=== PATIENT | female | born 1975 | race Caucasian/White ===

== ENCOUNTER → 2016-09-17 | Outpatient (REF) | payer BC ==
[2016-09-17 11:44] LABS: BASO % 0.3 % (0.0-1.0); EOS # 0.2 K/mm3 (0.0-0.50); LARGE UNSTAINED CELL # 0.2 K/mm3 (0.0-0.4); LARGE UNSTAINED CELL % 3.9 % (0.0-4.0); LYMPH # 1.1 K/mm3 (1.5-4.5); LYMPH % 25.4 % (24.0-44.0); MEAN CORPUSCULAR HEMOGLOBIN 29.2 pg (27.0-33.0); MEAN CORPUSCULAR HGB CONC 33.2 g/dl (32.0-36.5); MEAN CORPUSCULAR VOLUME 87.9 fl (80.0-96.0); MONO # 0.3 K/mm3 (0.0-0.8); MONO % 7.5 % (0.0-5.0); NEUTROPHILS # 2.6 K/mm3 (1.8-7.7); NEUTROPHILS % 57.9 % (36.0-66.0); PLATELET COUNT, AUTOMATED 282 k/mm3 (150-450); RED CELL DISTRIBUTION WIDTH 12.9 % (11.5-14.5); WHITE BLOOD COUNT 4.4 K/mm3 (4.0-10.0)
[2016-09-17 12:03] LABS: ALBUMIN 4.1 GM/DL (3.2-5.2); ALBUMIN/GLOBULIN RATIO 1.24 (1.00-1.93); BILIRUBIN,TOTAL 0.5 MG/DL (0.2-1.0); CALCIUM LEVEL 8.7 MG/DL (8.5-10.1); CREATININE FOR GFR 1.1 MG/DL (0.55-1.02); GLOMERULAR FILTRATION RATE 59.2 (>60); POTASSIUM SERUM 4.1 MEQ/L (3.5-5.1); TOTAL PROTEIN 7.4 GM/DL (6.4-8.2)
== END ==
LOC: M SFHCPLAZ 08:59
PROVIDERS: ATTEND Nurse Practitioner Family
DX: Z00.00 Encounter for general adult medical examination without abnormal findings (principal); E55.9 Vitamin D deficiency, unspecified

== ENCOUNTER → 2016-12-05 | Outpatient (REF) | payer BC ==
[2016-12-05 17:10] LABS: ANION GAP 4 MEQ/L (8-16); BLOOD UREA NITROGEN 10 MG/DL (7-18); CALCIUM LEVEL 9.3 MG/DL (8.5-10.1); CARBON DIOXIDE LEVEL 31 MEQ/L (21-32); CHLORIDE LEVEL 104 MEQ/L (98-107); CREATININE FOR GFR 1.02 MG/DL (0.55-1.02); FREE T4 1.29 NG/DL (0.76-1.46); GLOMERULAR FILTRATION RATE > 60.0 (>60); GLUCOSE, FASTING 99 MG/DL (70-105); POTASSIUM SERUM 4.2 MEQ/L (3.5-5.1); SODIUM LEVEL 139 MEQ/L (136-145)
[2016-12-05 18:24] LABS: BASO % 0.2 % (0.0-1.0); EOS # 0.2 K/mm3 (0.0-0.50); EOS % 2.3 % (0.0-3.0); LARGE UNSTAINED CELL # 0.1 K/mm3 (0.0-0.4); LYMPH # 1.8 K/mm3 (1.5-4.5); LYMPH % 25.2 % (24.0-44.0); MEAN CORPUSCULAR HEMOGLOBIN 29.1 pg (27.0-33.0); MEAN CORPUSCULAR HGB CONC 32.4 g/dl (32.0-36.5); MEAN CORPUSCULAR VOLUME 89.6 fl (80.0-96.0); MONO # 0.5 K/mm3 (0.0-0.8); MONO % 6.5 % (0.0-5.0); NEUTROPHILS # 4.4 K/mm3 (1.8-7.7); NEUTROPHILS % 63.7 % (36.0-66.0); PLATELET COUNT, AUTOMATED 293 k/mm3 (150-450); RED CELL DISTRIBUTION WIDTH 12.5 % (11.5-14.5); WHITE BLOOD COUNT 6.9 K/mm3 (4.0-10.0)
== END ==
LOC: M SFHCPLAZ 12:24
PROVIDERS: ATTEND Nurse Practitioner Family
DX: R53.83 Other fatigue (principal); E89.0 Postprocedural hypothyroidism; E55.9 Vitamin D deficiency, unspecified

== ENCOUNTER → 2016-12-11 | Outpatient (REF) | payer BC | LOC: M SFHCWAGY 11:29 | PROVIDERS: ATTEND Nurse Practitioner Women's Health | DX: Z12.4 Encounter for screening for malignant neoplasm of cervix (principal) ==

== ENCOUNTER → 2017-03-29 | Outpatient (REF) | payer BC ==
[2017-04-02 00:10] LABS: Lyme Disease IgG/IgM Antibodie <0.91 ISR (0.00-0.90); Lyme Disease IgM Ab Quantitati <0.80 index (0.00-0.79)
== END ==
LOC: M SFHCPLAZ 13:36
PROVIDERS: ATTEND Nurse Practitioner Family
DX: M25.50 Pain in unspecified joint (principal)

== ENCOUNTER → 2017-07-25 | Outpatient (CLI) | payer BC ==
[~2017-07-25] MED LIST: GASTROGRAFIN SOLUTION 30ML (Q9963) As Ordered ONE
--- NOTE | 2017-07-25 16:02 | REP ---
Clinical: Colonic stricture. Comparison: None. Findings: Lung bases are clear. Visualized heart and pericardium normal. Liver, spleen, pancreas, gallbladder, bilateral adrenal glands and kidneys are normal for noncontrast evaluation. The enteric system is without obstruction or acute inflammatory process although evaluation is somewhat limited by the lack of both the intraluminal and intravenous contrast enhancement. A normal terminal ileum and appendix are identified in the right lower quadrant. Scattered sigmoid diverticula are noted without acute diverticulitis. Pelvis demonstrates normal bladder and age appropriate uterus / adnexa with possible underlying myomatous changes. No ascites. No adenopathy. No obvious mass lesion. Abdominal aorta without aneurysm. Musculoskeletal structures are intact. Impression: 1. Scattered sigmoid diverticula without acute diverticulitis. 2. Cannot exclude myomatous changes to the uterus. 3. No ascites, obvious adenopathy or mass lesion. No further abdominopelvic pathology appreciated by noncontrast evaluation. Signed by Ezequiel Lantigua MD 07/25/2017 03:53 P
== END ==
LOC: M RAD 12:52
PROVIDERS: ATTEND Internal Medicine Gastroenterology
DX: K56.699 Other intestinal obstruction unspecified as to partial versus complete obstruction (principal); K57.30 Diverticulosis of large intestine without perforation or abscess without bleeding; R10.9 Unspecified abdominal pain; K62.5 Hemorrhage of anus and rectum; K59.00 Constipation, unspecified
CPT/HCPCS: 74176; Q9963

== ENCOUNTER → 2017-09-25 | Outpatient (CLI) | payer BC | LOC: M WHC 08:06 | DX: N85.8 Other specified noninflammatory disorders of uterus (principal); N94.6 Dysmenorrhea, unspecified | CPT/HCPCS: 76830 ==

== ENCOUNTER → 2018-08-07 | Outpatient (CLI) | payer MEDICARE, BC ==
--- NOTE | 2018-08-07 09:04 | REP ---
LEFT HAND, FOUR VIEWS: HISTORY: Ganglion cyst. There is no acute fracture or dislocation. The joint spaces are normal in appearance. IMPRESSION: There is no acute fracture or dislocation. Electronically Signed by Delfino Pichardo MD 08/07/2018 09:13 A
--- NOTE | 2018-08-07 09:05 | REP ---
LEFT WRIST, FOUR VIEWS: HISTORY: Ganglion cyst. There is no acute fracture or dislocation. The joint spaces are normal in appearance. IMPRESSION: There is no acute fracture or dislocation. Electronically Signed by Delfino Pichardo MD 08/07/2018 09:13 A
== END ==
LOC: M RAD 07:48
PROVIDERS: ATTEND Nurse Practitioner Family
DX: M67.449 Ganglion, unspecified hand (principal); M79.643 Pain in unspecified hand; M65.4 Radial styloid tenosynovitis [de Quervain]; M25.532 Pain in left wrist

== ENCOUNTER → 2019-06-05 | Outpatient (CLI) | payer MEDICARE, BC ==
[2019-06-05 11:29] LABS: BASO % 0.4 % (0.0-1.0); EOS # 0.3 10^3/uL (0.0-0.5); EOS % 5.4 % (0.0-3.0); HEMATOCRIT 41.1 % (36.0-47.0); HEMOGLOBIN 13.6 g/dl (12.0-15.5); LYMPH # 1.7 10^3/uL (1.5-5.0); LYMPH % 37.7 % (24.0-44.0); MEAN CORPUSCULAR HEMOGLOBIN 29.8 pg (27.0-33.0); MEAN CORPUSCULAR HGB CONC 33.1 g/dl (32.0-36.5); MEAN CORPUSCULAR VOLUME 89.9 fl (80.0-96.0); MONO # 0.4 10^3/uL (0.0-0.8); MONO % 9.5 % (0.0-5.0); NEUTROPHILS # 2.2 10^3/uL (1.5-8.5); NEUTROPHILS % 46.8 % (36.0-66.0); PLATELET COUNT, AUTOMATED 220 10^3/uL (150-450); RED BLOOD COUNT 4.57 10^6/uL (4.00-5.40); WHITE BLOOD COUNT 4.6 10^3/uL (4.0-10.0)
[2019-06-05 12:16] LABS: ALBUMIN 4.2 GM/DL (3.2-5.2); ALT/SGPT 16 U/L (12-78); BILIRUBIN,TOTAL 0.4 MG/DL (0.2-1.0); BLOOD UREA NITROGEN 16 MG/DL (7-18); CALCIUM LEVEL 9.3 MG/DL (8.5-10.1); CARBON DIOXIDE LEVEL 27 MEQ/L (21-32); CHLORIDE LEVEL 103 MEQ/L (98-107); CREATININE FOR GFR 0.97 MG/DL (0.55-1.30); FOLATE 18.7 NG/ML; GLOMERULAR FILTRATION RATE > 60.0 (>58); GLUCOSE, FASTING 84 MG/DL (70-100); SODIUM LEVEL 140 MEQ/L (136-145); VITAMIN B12 LEVEL 313 PG/ML
[2019-06-10 08:12] LABS: CERULOPLASMIN 24.6 mg/dL (19.0-39.0); VITAMIN B6,PYRIDOXAL PHOSPHATE 22.2 ug/L (2.0-32.8); VITAMIN E(GAMMA TOCOPHEROL) 0.5 mg/L (0.5-5.5)
== END ==
LOC: M LAB 09:06
PROVIDERS: ATTEND Psychiatry & Neurology Neurology
DX: R51 Headache (principal)

== ENCOUNTER → 2020-07-11 | Outpatient (CLI) | payer MEDICARE, BC ==
[2020-07-11 11:03] LABS: BLOOD UREA NITROGEN 13 MG/DL (7-18); CARBON DIOXIDE LEVEL 25 MEQ/L (21-32); CHLORIDE LEVEL 109 MEQ/L (98-107); CHOLESTEROL LEVEL 261 MG/DL (<200); CHOLESTEROL RISK RATIO 4.078 (<5); CREATININE FOR GFR 0.97 MG/DL (0.55-1.30); FREE T4 1.12 NG/DL (0.76-1.46); GLOMERULAR FILTRATION RATE > 60.0 (>58); GLUCOSE, FASTING 86 MG/DL (70-100); HDL CHOLESTEROL 64 MG/DL (>40); LDL CHOLESTEROL 160 MG/DL (<100); NON-HDL-C 197 MG/DL; POTASSIUM SERUM 4.2 MEQ/L (3.5-5.1); SODIUM LEVEL 140 MEQ/L (136-145); THYROID STIMULATING HORMONE 0.241 uIU/ML (0.358-3.740); TRIGLYCERIDES LEVEL 185 MG/DL (<150)
[2020-07-11 11:21] LABS: THYROGLOBULIN ANTIBODY < 15.0 U/ML (<60.0)
== END ==
LOC: M LAB 08:25
PROVIDERS: ATTEND Internal Medicine Endocrinology, Diabetes & Metabolism
DX: C73 Malignant neoplasm of thyroid gland (principal); E89.0 Postprocedural hypothyroidism

== ENCOUNTER → 2020-08-19 | Outpatient (CLI) | payer MEDICARE, BC ==
--- NOTE | 2020-08-19 14:40 | REP ---
INDICATION: HYPOTHYROID, HX THYROID CA. COMPARISON: Patient has a history of thyroid cancer with thyroidectomy in 2015 in. There is a pre surgical thyroid ultrasound study dated 08/27/2014 that demonstrated an enlarging left thyroid nodule. TECHNIQUE: Multiple real-time and color doppler ultrasound images of the thyroid bed. FINDINGS: There is no residual thyroid tissue . There are multiple nodular densities in the thyroid bed on the right and left . All of these nodular densities have hypoechoic rims and hyperechoic centers compatible with lymph nodes. The largest 4 on the left measure 9 x 4 x 7 mm, 13 x 7 x 10 mm, 13 x 5 x 12 mm and 12 x 7 mm. These are upper normal size to borderline enlarged. The largest 4 on the right measure 17 x 5 x 12 mm, 10 x 6 x 12 mm, 12 x 6 x 9 mm and 11 x 6 x 11 mm. These are of upper normal size to borderline enlarged. IMPRESSION: No residual thyroid tissue is identified. Multiple lymph nodes are identified in the thyroid bed as described. These lymph nodes are upper normal size to borderline enlarged. <Electronically signed by Cong Walker > 08/19/20 [id number]
== END ==
LOC: M RAD 10:47
PROVIDERS: ATTEND Internal Medicine Endocrinology, Diabetes & Metabolism
DX: C73 Malignant neoplasm of thyroid gland (principal); E89.0 Postprocedural hypothyroidism

== ENCOUNTER → 2020-08-31 | Outpatient (CLI) | payer MEDICARE, BC ==
[2020-09-02 10:06] LABS: THRYOGLOBULIN ANTIBODIES (ATA) < 1.0 IU/mL (0.0-0.9); THYROGLOBULIN QUANTITATIVE < 0.1 ng/mL (1.5-38.5)
== END ==
LOC: M LAB 08:42
PROVIDERS: ATTEND Internal Medicine Endocrinology, Diabetes & Metabolism
DX: C73 Malignant neoplasm of thyroid gland (principal)

== ENCOUNTER → 2021-02-11 | Outpatient (CLI) | payer MEDICARE, BC ==
--- NOTE | 2021-02-11 12:29 | REP ---
INDICATION: CONTUSION OF LEFT FOOT, INITIAL ENCOUNTER COMPARISON: None. TECHNIQUE: AP, lateral, bilateral oblique views left foot. FINDINGS: The osseous structures and joint spaces are intact and normal. There is no evidence for acute fracture or dislocation. Surrounding soft tissues are unremarkable. No subcutaneous emphysema or radiodense foreign body. IMPRESSION: . No acute fracture or dislocation. <Electronically signed by Ezequiel Lantigua > 02/11/21 [id number]
== END ==
LOC: M RAD 11:53
PROVIDERS: ATTEND Physician Assistant
DX: S90.32XA Contusion of left foot, initial encounter (principal); X58.XXXA Exposure to other specified factors, initial encounter; Y92.9 Unspecified place or not applicable; Y99.9 Unspecified external cause status

== ENCOUNTER → 2021-03-06 | Outpatient (CLI) | payer MEDICARE, BC ==
--- NOTE | 2021-03-10 01:11 | ECWPNPC ---
PATIENT NAME: WILIAM MEADE : 1975 GENDER: FEMALE VISIT DATE: 03/06/2021 DISCHARGE DATE: 03/06/21905 VISIT LOCKED DATE TIME: PHYSICIAN: DWAYNE CURTIS PHYSICIAN PAGER NO: INACTIVE RESOURCE: DWAYNE CURTIS REASON FOR APPOINTMENT 1. BOTOX FOR MIGRAINES HISTORY OF PRESENT ILLNESS DEPRESSION SCREENING: PHQ-2 (2015 EDITION) LITTLE INTEREST OR PLEASURE IN DOING THINGS?NOT AT ALL FEELING DOWN, DEPRESSED, OR HOPELESS?NOT AT ALL TOTAL SCORE0 GENERAL: HPI 45-YEAR-OLD FEMALE IN FOR INITIAL CONSULT REGARDING BOTOX FOR HER MIGRAINES. PATIENT HAS A HISTORY OF CHRONIC MIGRAINES AND HAS RECEIVED BOTOX INJECTIONS FOR HER MIGRAINES IN THE PAST WITH GOOD RELIEF.. - -. FALL RISK SCREENING: SCREENING MULTIPLE FALLS REPORTED IN THE LAST YEAR WITHOUT INJURY. PATIENT STATES SHE HAS A "BALANCE PROBLEM.". PAIN SCREENING: PATIENT HAS A COMPLAINT OF ACUTE OR CHRONIC PAIN :YES LOCATION OF PAIN:HEAD INTENSITY OF PAIN (SCALE OF 1 TO 10):7 7 ON THE PAIN SCALE WHEN THE PATIENT HAS A MIGRAINE. WHAT DOES YOUR PAIN FEEL LIKE:ACHING, BURNING, INTERMITTENT, SHARP, STABBING, TENDER, THROBBING, SORE, SHOOTING DURATION:INTERMITTENT, AWAKENS FROM SLEEP PAIN IS INCREASED BY:OTHERS HEAT, SOUND, LIGHT, NOISE, MOVEMENT PAIN IS DECREASED BY:USE OF PAIN MEDICATIONS, OTHERS ICE, DARKNESS, QUIET NURSING NOTE: - -. PAIN CENTER INTAKE QUESTIONS: DO YOU HAVE A HISTORY OF MRSA? :NO DO YOU TAKE A BLOOD THINNERS? :NO DO YOU HAVE ANY BLEEDING DISORDERS? :NO ANY NEW NUMBNESS OR WEAKNESS IN YOUR LEGS OR ARMS? :NO ANY PACEMAKER,DEFIBRILLATOR, OR DORSAL COLUMN STIMULATOR? :NO DO YOU HAVE ANY RASHES OR OPEN SORES? :NO ARE YOU ALLERGIC TO IV DYE? :NO ARE YOU DIABETIC? :NO ANY NEW PROBLEMS WITH YOUR MEDICATIONS? :NO HAVE YOU RECEIVED A VACCINE IN THE PAST 30 DAYS? :NO DO YOU PLAN TO RECEIVE A VACCINE IN THE NEXT 21 DAYS? :NO DO YOU NEED ANY PRESCRIPTION? :NO DO YOU TAKE ANY IMMUNOSUPPRESSIVE MEDICATIONS? :NO IS THERE A CHANCE YOU COULD BE ? :NO ARE YOU BREAST FEEDING? :NO CURRENT MEDICATIONS TAKING TOPAMAX 25 MG TABLET 1 TABLET ORALLY ONCE A DAY TAKING VITAMIN D 50 MCG (1999 UT) TABLET 1 TABLET ORALLY ONCE A DAY TAKING SPACER/AERO CHAMBER MOUTHPIECE 1 1 1 ORALLY TWICE A DAY NEEDED TAKING BACLOFEN 10 MG TABLET 1 TABLET ORALLY THREE TIMES A DAY NEEDED DR MURILLO) TAKING BOTOX 200 UNIT SOLUTION RECONSTITUTED 1 UNIT DOSE INJECTION EVERY THREE MONTHS TAKING KLONOPIN 0.5 MG TABLET 1 TABLET ORALLY BID TAKING CLARITIN 10 MG TABLET 1 TABLET ORALLY DAILY NEEDED TAKING ZOLOFT 100 MG TABLET 1 TABLET ORALLY ONCE A DAY TAKING WELLBUTRIN XL 300 MG TABLET EXTENDED RELEASE 24 HOUR 1 TABLET IN THE MORNING ORALLY ONCE A DAY TAKING LEVOTHYROXINE SODIUM 175 MCG TABLET 1 TABLET ORALLY ONCE A DAY TAKING FLONASE 50 MCG/ACT SUSPENSION 1 SPRAY IN EACH NOSTRIL NASALLY ONCE A DAY NEEDED TAKING MELOXICAM 7.5 MG TABLET DISINTEGRATING (PRIOR AUTH: RX REF#:[id number]) ORALLY DAILY TAKING HYDROXYZINE HCL 10 MG TABLET (PRIOR AUTH: RX REF#:[id number]) ORAL TAKING ALEVE 220 MG TABLET 2 TABS NEEDED ORALLY EVERY 12 HRS TAKING CPAP MACHINE DIRECTED NOT-TAKING FOLATE 400 MCG TABLET 1 TABLET ORALLY ONCE A DAY NOT-TAKING VITAMIN B-12 100 MCG TABLET DIRECTED ORALLY NOT-TAKING OMEPRAZOLE 20 MG CAPSULE DELAYED RELEASE 1 CAPSULE ORALLY ONCE A DAY NOT-TAKING WRIST SPLINT - MISCELLANEOUS DIRECTED SPICA SPLINT DX: M65.4 NOT-TAKING VENTOLIN HFA 108 (90 BASE) MCG/ACT AEROSOL SOLUTION 2 PUFFS INHALATION EVERY 4-6 HOURS NEEDED NOT-TAKING FRANCESCO-BE 0.35 MG TABLET 1 TABLET ORALLY ONCE A DAY NOT-TAKING ORTHO MICRONOR 0.35 MG TABLET 1 TABLET ORALLY ONCE A DAY NOT-TAKING SYMBICORT 160-4.5 MCG/ACT AEROSOL 2 PUFFS INHALATION TWICE A DAY NOT-TAKING DRISDOL 50,000 UNITS TABLET 1 TABLET ORAL EVERY WEEK MEDICATION LIST REVIEWED AND RECONCILED WITH THE PATIENT PAST MEDICAL HISTORY ASTHMA ALLERGIC RHINITIS DEPRESSION/ANXIETY BILATERAL HEMIPLEGIC FACIAL SPASM, BLEPHAROSPASMS, BUCCAL SPASM BOTOX EVERY 3 MONTHS - FOLLOWING WITH NEUROLOGIST DR MURILLO, AND IN [place] MORBID OBESITY PAPILLARY CARCINOMA OF THE THYROID DX 09/23 [facility]/ENDO MIGRAINES ALLERGIES SWEET POTATOES: NAUSEA/VOMITING - SIDE EFFECTS SEASONAL: CONGESTION - ALLERGY SURGICAL HISTORY TOTAL THYROIDECTOMY @ [facility] 12/16/14 FAMILY HISTORY FATHER: ALIVE 68 YRS, PROSTATE CANCER MOTHER: ALIVE 69 YRS, FIBROCYSTIC BREASTS SIBLINGS: ALIVE 50 YRS, NO KNOWN MEDICAL PROBLEMS PATERNAL GRAND FATHER: DM PATERNAL GRAND MOTHER: BREAST CANCER MATERNAL GRAND MOTHER: 42 YRS, UNKNOWN CAUSES MATERNAL AUNT: ALIVE, KIDNEY PROBLEMS 1 BROTHER(S) . NO KNOWN FH COLORECTAL, BREAST CA IN FIRST DEGREE RELATIVE.MOTHER HAS MIGRAINES. SOCIAL HISTORY GENERAL: TOBACCO USE ARE YOU A:NONSMOKER LATEX QUESTIONNAIRE LATEX ALLERGY : HAVE YOU EVER DEVELOPED ANY TYPE OF REACTION AFTER HANDLING LATEX PRODUCTS SUCH RUBBER GLOVES, CONDOMS, DIAPHRAGMS, BALLOONS, SOCKS, OR UNDERWEAR?NO LATEX ALLERGY : HAVE YOU EVER DEVELOPED ANY TYPE OF REACTION DURING OR AFTER DENTAL APPOINTMENT, VAGINAL/RECTAL EXAMINATION, SURGICAL PROCEDURE, OR ANY OTHER EXPOSURE?NO LATEX RISK : HAVE YOU EVER HAD ANY DIFFICULTY BREATHING OR HIVES AFTER EATING OR HANDLING ANY FRUITS, OR VEGETABLES; SUCH KIWI, BANANAS, STONE FRUITS, OR CHESTNUTSNO LATEX RISK : DO YOU HAVE A PREVIOUS PERSONAL HISTORY OF MORE THAN NINE SURGERIES, SPINA BIFIDA, OR REPEATED CATHERIZATIONS? NO LATEX RISK : ARE YOU FREQUENTLY EXPOSED TO LATEX PRODUCTS IN YOUR OCCUPATION?NO DATE ASKED : 03/06/2021 ALCOHOL USE: OCCASIONAL. BMI CARE GOAL FOLLOW-UP ABOVE NORMAL BMI FOLLOW-UPDIETARY MANAGEMENT EDUCATION, GUIDANCE, AND COUNSELING, GIVING ENCOURAGEMENT TO EXERCISE, WEIGHT MONITORING RECREATIONAL DRUG USE DENIES. CAFFEINE CAFFEINE USE?YES HOW OFTEN AND HOW MUCH? 2 CUPS OF COFFEE DAILY SEXUAL HX HAD SEX IN THE LAST 12 MONTHS (VAGINAL, ORAL, OR ANAL)?YES WITHMEN ONLY USE PROTECTION?NO LMP:11/25/16 HAVE YOU EVER HAD AN STD?NO HIV / HEP-C SCREENING HIV TEST OFFERED TO PATIENT:YES DATE OFFERED:12/11/2016 TEST ACCEPTED:NO REASON:PATIENT DECLINED [facility] WITNESS.. LANGUAGE LANGUAGES SPOKEN:SETSWANA EDUCATION LEVEL OF EDUCATION:COLLEGE LEARNING BARRIERS / SPECIAL NEEDS CHANGE FROM LAST VISIT?NO BARRIERS TO LEARNING?NO HEARING IMPAIRED?NO VISION IMPAIRED?YES :CORRECTIVE LENSES COGNITIVELY IMPAIRED?NO READINESS TO LEARN?YES LEARNING PREFERENCES?NO LEARNING CAPABILITIES PRESENT?YES EMOTIONAL BARRIERS?NO SPECIAL DEVICES?NO FUR DRESSER NEEDED?NO DOMESTIC VIOLENCE NONE. OCCUPATION: UNEMPLOYED. DIET: REGULAR. EXERCISE: NO REGULAR EXERCISE. MARITAL STATUS: SINCE 1998. OTHERS AT HOME: SPOUSE, MOM - LIVES IN AN APT ATTACHED TO HER HOUSE. HOUSING: OWNS HOME. HOSPITALIZATION/MAJOR DIAGNOSTIC PROCEDURE SURGERY RELATED 12/26/2014 REVIEW OF SYSTEMS CONSTITUTIONAL: ANY RECENT FEVER NO . CHILLS NO . WEIGHT CHANGE OF UNKNOWN REASONS NO . GASTROENTEROLOGY: NEW UNEXPLAINABLE CHANGES IN BOWEL CONTROL NO . CONSTIPATION NO . GENITOURINARY: ANY NEW CHANGE IN BLADDER CONTROL? NO . NEUROLOGY: NEW ONSET DIZZINESS OR NEUROLOGICAL CHANGES NOT MENTIONED NO . NEW NUMBNESS OR PAIN PATTERNS NOT MENTIONED AND PERTINENT TO TODAY'S VISIT NO . CARDIOLOGY: NEW CHEST PRESSURE NO . PATIENT DENIES NO . RESPIRATORY: UNEXPLAINABLE COUGH NO . NEW SHORTNESS OF BREATH NO . VITAL SIGNS WT 203.4 LBS, HT 67 IN, BMI 31.85 INDEX, BP 141/78 MM HG, HR 89 /MIN, RR 20 /MIN, TEMP 98.8 F, OXYGEN SAT % 98%, SAFE IN ENV? (Y/N) YES, NA INITIALS MN 08:31, REVIEWED BY: MAXWELL RYAN MA. EXAMINATION GENERAL EXAMINATION: GENERALNO ACUTE DISTRESS, WELL NOURISHED AND HYDRATED. PSYCHAPPROPRIATE MOOD AND AFFECT . LUNGS:CLEAR TO AUSCULTATION BILATERALLY, NO WHEEZES, RHONCHI, RALES. HEART:NO MURMURS, REGULAR RATE AND RHYTHM. ASSESSMENTS MIGRAINE WITHOUT AURA AND WITHOUT STATUS MIGRAINOSUS, NOT INTRACTABLE - G43.009 (PRIMARY) TREATMENT MIGRAINE WITHOUT AURA AND WITHOUT STATUS MIGRAINOSUS, NOT INTRACTABLE MEDICATION: NORCO TABLET 5MG/325MG ORALLY (HYDROCODONE/ACETAMINOPHEN) (ORDERED FOR 03/16/2021) MEDICATION: VALIUM TAB 5MG ORALLY (DIAZEPAM) (ORDERED FOR 03/16/2021) NOTES: 45-YEAR-OLD FEMALE IN FOR INITIAL PAIN CONSULT REGARDING BOTOX INJECTIONS FOR HER MIGRAINES. GIVEN PRESENTING SYMPTOMS AND RESULTS OF PHYSICAL EXAMINATION RECOMMEND BOTOX INJECTIONS TO THE HEAD NECK AND SHOULDERS WITH POSTPROCEDURAL FOLLOW-UP. PATIENT HAS EXPRESSED UNDERSTANDING OF AND WAS IN AGREEMENT WITH TREATMENT PLAN. GIVEN TIME TO ASK QUESTIONS AND EXPRESS CONCERNS. OTHERS CLINICAL NOTES: PREPROCEDURE AND PROCEDURE INFORMATION PRINTED AND PROVIDED TO PATIENT. PATIENT VERBALIZED AN UNDERSTANDING. TYRA RYAN MA. PROCEDURE CODES FA211 ESTABILISHED PATIENT [facility] CHARGE DISPOSITION & COMMUNICATION FOLLOW UP POST PROCEDURE (REASON: BOTOX INJECTIONS OF 155 UNITS INTO BILATERAL SUPERVISOR ROLLING ROOM, PROCERUS, FRONTALIS, TEMPORALIS, OCCIPITALIS, PARASPINAL AND TRAPEZIUS MUSCLES EVERY 3 MONTHS) ELECTRONICALLY SIGNED BY DAVI SALEH ON 03/09/2021 AT 07:45 AM EDT DISCLAIMER : THIS IS A VISIT SUMMARY EXTRACTED FROM THE [employer] CHART. IT IS NOT A COPY OF THE [employer] PROGRESS NOTE. DAMON
== END ==
LOC: M PAIN 08:30
PROVIDERS: ATTEND Family Medicine
DX: G43.009 Migraine without aura, not intractable, without status migrainosus (principal); J45.909 Unspecified asthma, uncomplicated; F32.9 Major depressive disorder, single episode, unspecified; F41.9 Anxiety disorder, unspecified; G51.33 Clonic hemifacial spasm, bilateral; Z85.238 Personal history of other malignant neoplasm of thymus; E89.0 Postprocedural hypothyroidism; Z79.899 Other long term (current) drug therapy; Z91.018 Allergy to other foods

== ENCOUNTER → 2021-03-22 | Outpatient (CLI) | payer MEDICARE, BC ==
[2021-03-22 12:23] LABS: BASO % 0.5 % (0.0-1.0); EOS # 0.3 10^3/uL (0.0-0.5); EOS % 4.4 % (0.0-3.0); HEMATOCRIT 40.7 % (36.0-47.0); HEMOGLOBIN 13.6 g/dl (12.0-15.5); LYMPH # 2.2 10^3/uL (1.5-5.0); LYMPH % 30.2 % (24.0-44.0); MEAN CORPUSCULAR HEMOGLOBIN 31.3 pg (27.0-33.0); MEAN CORPUSCULAR HGB CONC 33.4 g/dl (32.0-36.5); MEAN CORPUSCULAR VOLUME 93.6 fl (80.0-96.0); MONO # 0.5 10^3/uL (0.0-0.8); MONO % 7.1 % (2.0-8.0); NEUTROPHILS # 4.2 10^3/uL (1.5-8.5); NEUTROPHILS % 57.4 % (36.0-66.0); PLATELET COUNT, AUTOMATED 265 10^3/uL (150-450); RED BLOOD COUNT 4.35 10^6/uL (4.00-5.40); WHITE BLOOD COUNT 7.3 10^3/uL (4.0-10.0)
[2021-03-22 13:04] LABS: ALBUMIN 3.9 GM/DL (3.2-5.2); ALT/SGPT 28 U/L (12-78); BILIRUBIN,TOTAL 0.3 MG/DL (0.2-1.0); BLOOD UREA NITROGEN 13 MG/DL (7-18); CALCIUM LEVEL 9.3 MG/DL (8.5-10.1); CARBON DIOXIDE LEVEL 25 MEQ/L (21-32); CHLORIDE LEVEL 109 MEQ/L (98-107); CREATININE FOR GFR 0.92 MG/DL (0.55-1.30); FREE T4 1.18 NG/DL (0.76-1.46); GLOMERULAR FILTRATION RATE > 60.0 (>58); GLUCOSE, FASTING 82 MG/DL (70-100); POTASSIUM SERUM 4.3 MEQ/L (3.5-5.1); PTH INTACT 28.7 PG/ML (18.5-88.0); SODIUM LEVEL 140 MEQ/L (136-145); THYROID STIMULATING HORMONE 0.544 uIU/ML (0.358-3.740); TOTAL 25(OH) VITAMIN D 20.2 NG/ML (30.0-100.0)
[2021-03-23 19:02] LABS: CHOLESTEROL LEVEL 232 MG/DL (<200); CHOLESTEROL RISK RATIO 4.142 (<5); HDL CHOLESTEROL 56 MG/DL (>40); LDL CHOLESTEROL 126 MG/DL (<100); NON-HDL-C 176 MG/DL; TRIGLYCERIDES LEVEL 251 MG/DL (<150)
== END ==
LOC: M LAB 11:00
PROVIDERS: ATTEND Physician Assistant Medical
DX: E55.9 Vitamin D deficiency, unspecified (principal); E03.9 Hypothyroidism, unspecified; K21.9 Gastro-esophageal reflux disease without esophagitis; Z13.1 Encounter for screening for diabetes mellitus; Z79.899 Other long term (current) drug therapy
CPT/HCPCS: 36415; 80053; 80061; 82306; 83036; 83970; 84439; 84443; 85025; G0463

== ENCOUNTER → 2021-04-08 | Outpatient (CLI) | payer MEDICARE, BC | LOC: M LABSMTC 10:08 | PROVIDERS: ATTEND Anesthesiology | DX: Z01.812 Encounter for preprocedural laboratory examination (principal); Z20.822 Contact with and (suspected) exposure to COVID-19 ==

== ENCOUNTER → 2021-04-13 | Outpatient (CLI) | payer MEDICARE, BC ==
[~2021-04-13] MED LIST changes: +BOTOX THERAPEUTIC 100 UNIT VIAL (J0585 PER 1 UNIT) IM ONE; -GASTROGRAFIN SOLUTION 30ML (Q9963) As Ordered ONE; +NORCO, ANEXSIA 5/325MG TABLET (HYDROcodone/ACETAMINOPHEN) As Ordered ONE; +diazePAM 5MG TABLET As Ordered ONE
--- NOTE | 2021-04-19 02:17 | ECWPNPC ---
PATIENT NAME: WILIAM MEADE : 1975 GENDER: FEMALE VISIT DATE: 04/13/2021 DISCHARGE DATE: 04/13/21 1211 VISIT LOCKED DATE TIME: PHYSICIAN: JENNY HURTADO MD PHYSICIAN PAGER NO: ACTIVE RESOURCE: JENNY HURTADO MD REASON FOR APPOINTMENT 1. BOTOX INJECTIONS TO THE HEAD, NECK AND SHOULDER AREAS HISTORY OF PRESENT ILLNESS GENERAL: -. FALL RISK SCREENING: SCREENING : ONE FALL REPORTED IN THE LAST YEAR WITHOUT INJURY. PAIN SCREENING: PATIENT HAS A COMPLAINT OF ACUTE OR CHRONIC PAIN :YES LOCATION OF PAIN:HEAD, NECK, BOTH SHOULDERS INTENSITY OF PAIN (SCALE OF 1 TO 10):4 WHAT DOES YOUR PAIN FEEL LIKE:ACHING DURATION:CONTINOUS, CONSTANT PAIN IS INCREASED BY:ACTIVITIES PAIN IS DECREASED BY: ICE/HEAT NURSING NOTE: -. PAIN CENTER INTAKE QUESTIONS: DO YOU HAVE A HISTORY OF MRSA? :NO DO YOU TAKE A BLOOD THINNERS? :NO DO YOU HAVE ANY BLEEDING DISORDERS? :NO ANY NEW NUMBNESS OR WEAKNESS IN YOUR LEGS OR ARMS? :NO ANY PACEMAKER,DEFIBRILLATOR, OR DORSAL COLUMN STIMULATOR? :NO DO YOU HAVE ANY RASHES OR OPEN SORES? :NO ARE YOU ALLERGIC TO IV DYE? :NO ARE YOU DIABETIC? :NO ANY NEW PROBLEMS WITH YOUR MEDICATIONS? :NO HAVE YOU RECEIVED A VACCINE IN THE PAST 30 DAYS? :NO DO YOU PLAN TO RECEIVE A VACCINE IN THE NEXT 21 DAYS? :NO DO YOU TAKE ANY IMMUNOSUPPRESSIVE MEDICATIONS? :NO ANY HISTORY OF SEIZURES? :NO ANY HISTORY OF CARDIAC ISSUES OR EVENTS? :NO DO YOU HAVE ANY KIDNEY OR LIVER DISEASE? :NO DO YOU HAVE SLEEP APNEA? :YES DO YOU WEAR A CPAP?YES ANY RECENT HEAD INJURY? :NO DO YOU HAVE ANY NEW INFECTIONS? :NO IS THERE A CHANCE YOU COULD BE ? :NO ARE YOU BREAST FEEDING? :NO WHEN DID YOU LAST EAT? : 04/12/21 WHEN DID YOU LAST DRINK? : 04/13/21 0430 WHAT DID YOU LAST DRINK? : COFFEE WITH CREAM NAME OF PERSON DRIVING YOU HOME? : MOM DO YOU HAVE ANY OTHER QUESTIONS OR CONCERNS? : - CURRENT MEDICATIONS TAKING TOPAMAX 25 MG TABLET 1 TABLET ORALLY ONCE A DAY TAKING BACLOFEN 10 MG TABLET 1 TABLET ORALLY THREE TIMES A DAY NEEDED DR MURILLO) TAKING KLONOPIN 0.5 MG TABLET 1 TABLET ORALLY BID TAKING CLARITIN 10 MG TABLET 1 TABLET ORALLY DAILY NEEDED TAKING ZOLOFT 100 MG TABLET 1 TABLET ORALLY ONCE A DAY TAKING WELLBUTRIN XL 300 MG TABLET EXTENDED RELEASE 24 HOUR 1 TABLET IN THE MORNING ORALLY ONCE A DAY TAKING LEVOTHYROXINE SODIUM 175 MCG TABLET 1 TABLET ORALLY ONCE A DAY TAKING FLONASE 50 MCG/ACT SUSPENSION 1 SPRAY IN EACH NOSTRIL NASALLY ONCE A DAY NEEDED TAKING MELOXICAM 7.5 MG TABLET DISINTEGRATING (PRIOR AUTH: RX REF#:[id number]) ORALLY DAILY TAKING HYDROXYZINE HCL 10 MG TABLET (PRIOR AUTH: RX REF#:[id number]) ORAL TAKING ALEVE 220 MG TABLET 2 TABS NEEDED ORALLY EVERY 12 HRS TAKING TIZANIDINE HCL 4 MG TABLET 1 TABLET NEEDED ORALLY THREE TIMES A DAY TAKING SPACER/AERO CHAMBER MOUTHPIECE 1 1 1 ORALLY TWICE A DAY NEEDED TAKING VENTOLIN HFA 108 (90 BASE) MCG/ACT AEROSOL SOLUTION 2 PUFFS INHALATION EVERY 4-6 HOURS NEEDED TAKING BOTOX 100 UNIT SOLUTION RECONSTITUTED FOR IM INJECTION AT THE HEAD, NECK AND SHOULDER MUSCLES ICD G43.709 OTOX ON 04/13/21 AT 10:40 MEDICATION LIST REVIEWED AND RECONCILED WITH THE PATIENT PAST MEDICAL HISTORY ASTHMA ALLERGIC RHINITIS DEPRESSION/ANXIETY BILATERAL HEMIPLEGIC FACIAL SPASM, BLEPHAROSPASMS, BUCCAL SPASM BOTOX EVERY 3 MONTHS - FOLLOWING WITH NEUROLOGIST DR MURILLO, AND IN [place] MORBID OBESITY PAPILLARY CARCINOMA OF THE THYROID DX 09/23 [facility] MIGRAINES POTS ALLERGIES SWEET POTATOES: NAUSEA/VOMITING - SIDE EFFECTS SEASONAL: CONGESTION - ALLERGY SOCIAL HISTORY GENERAL: TOBACCO USE ARE YOU A:NONSMOKER LATEX QUESTIONNAIRE LATEX ALLERGY : HAVE YOU EVER DEVELOPED ANY TYPE OF REACTION AFTER HANDLING LATEX PRODUCTS SUCH RUBBER GLOVES, CONDOMS, DIAPHRAGMS, BALLOONS, SOCKS, OR UNDERWEAR?NO LATEX ALLERGY : HAVE YOU EVER DEVELOPED ANY TYPE OF REACTION DURING OR AFTER DENTAL APPOINTMENT, VAGINAL/RECTAL EXAMINATION, SURGICAL PROCEDURE, OR ANY OTHER EXPOSURE?NO LATEX RISK : HAVE YOU EVER HAD ANY DIFFICULTY BREATHING OR HIVES AFTER EATING OR HANDLING ANY FRUITS, OR VEGETABLES; SUCH KIWI, BANANAS, STONE FRUITS, OR CHESTNUTSNO LATEX RISK : DO YOU HAVE A PREVIOUS PERSONAL HISTORY OF MORE THAN NINE SURGERIES, SPINA BIFIDA, OR REPEATED CATHERIZATIONS? NO LATEX RISK : ARE YOU FREQUENTLY EXPOSED TO LATEX PRODUCTS IN YOUR OCCUPATION?NO DATE ASKED : 03/06/2021 ALCOHOL USE: OCCASIONAL. BMI CARE GOAL FOLLOW-UP ABOVE NORMAL BMI FOLLOW-UPDIETARY MANAGEMENT EDUCATION, GUIDANCE, AND COUNSELING, GIVING ENCOURAGEMENT TO EXERCISE, WEIGHT MONITORING RECREATIONAL DRUG USE DENIES. CAFFEINE CAFFEINE USE?YES HOW OFTEN AND HOW MUCH? 2 CUPS OF COFFEE DAILY SEXUAL HX HAD SEX IN THE LAST 12 MONTHS (VAGINAL, ORAL, OR ANAL)?YES WITHMEN ONLY USE PROTECTION?NO HAVE YOU EVER HAD AN STD?NO LMP:11/25/16 HIV / HEP-C SCREENING HIV TEST OFFERED TO PATIENT:YES DATE OFFERED:12/11/2016 TEST ACCEPTED:NO REASON:PATIENT DECLINED TENRIISM JEHOVIAH WITNESS.. LANGUAGE LANGUAGES SPOKEN:DANISH EDUCATION LEVEL OF EDUCATION:COLLEGE LEARNING BARRIERS / SPECIAL NEEDS CHANGE FROM LAST VISIT?NO BARRIERS TO LEARNING?NO HEARING IMPAIRED?NO VISION IMPAIRED?YES :CORRECTIVE LENSES COGNITIVELY IMPAIRED?NO READINESS TO LEARN?YES LEARNING PREFERENCES?NO LEARNING CAPABILITIES PRESENT?YES EMOTIONAL BARRIERS?NO SPECIAL DEVICES?NO SOCIAL WORK NURSE NEEDED?NO DOMESTIC VIOLENCE NONE. OCCUPATION: UNEMPLOYED. DIET: REGULAR. EXERCISE: NO REGULAR EXERCISE. MARITAL STATUS: SINCE 1998. OTHERS AT HOME: SPOUSE, MOM - LIVES IN AN APT ATTACHED TO HER HOUSE. HOUSING: OWNS HOME. VITAL SIGNS WT 205 LBS, WT-KG 92.99 KG, HT 67 IN, BMI 32.10 INDEX, BP 125/80 MM HG, HR 77 /MIN, RR 18 /MIN, TEMP 98.5 F, OXYGEN SAT % 98%, SAFE IN ENV? (Y/N) Y, NA INITIALS SC 10:59, REVIEWED BY: HAYLEE. EXAMINATION GENERAL: THE PATIENT IS ALERT, ORIENTED TIMES THREE AND COOPERATIVE. LUNGS ARE CLEAR TO AUSCULTATION. HEART SHOWS REGULAR RHYTHM, NO MURMURS AND NO GALLOPS. ASSESSMENTS MIGRAINE WITHOUT AURA AND WITHOUT STATUS MIGRAINOSUS, NOT INTRACTABLE - G43.009 (PRIMARY) TREATMENT MIGRAINE WITHOUT AURA AND WITHOUT STATUS MIGRAINOSUS, NOT INTRACTABLE COMPLETION OF PROCEDURAL VISIT WHEN MEETS [id number],ELIZABETH 04/13/2021 12:11:10 PM > CRITERIA MET MEDICATION: NORCO TABLET 5MG/325MG ORALLY (HYDROCODONE/ACETAMINOPHEN)[id number] CARLSON 04/13/2021 11:03:59 AM > VERIFIED. ROSI GRADY 04/13/2021 11:06:29 AM > ADMINISTERED MEDICATION: PAIN VALIUM TAB 5MG ORALLY (DIAZEPAM)[id number],JAMIE L 04/13/2021 11:04:13 AM > VERIFIED. ROSI GRADY 04/13/2021 11:06:46 AM > ADMINISTERED PROCEDURES PAIN NURSING RECORD PROCEDURE IN ROOM 1045, PHYSICIAN IN ROOM 1135, START 1140, FINISH 1150, PHYSICIAN OUT OF ROOM 1151, OUT OF ROOM 1205, ECG N/A, PATIENT SHIELDED N/A, SAFETY STRAP N/A, PREP ALCOHOL DR. HURTADO, DRESSING N/A LOC: 1. ALERT, ORIENTED, ROSI GRADY 04/13/2021 11:58:10 AM > RESP: 1. REGULAR, NO DYSPNEA, ROSI GRADY 04/13/2021 11:58:14 AM > COLOR: 1. PINK, ROSI GRADY 04/13/2021 11:58:17 AM > SKIN: 1. WARM, DRY, ROSI GRADY 04/13/2021 11:58:20 AM > POSITION: 2. SUPINE, ROSI GRADY 04/13/2021 11:36:10 AM > VITALS: 140/71, 78, 16, 98%, ROSI GRADY 04/13/2021 12:00:31 PM > NOTES Keegan GRADY RN, ROSI GRADY 04/13/2021 11:36:16 AM > COMPLETION OF PROCEDURE APPOINTMENT: POST PAIN 0, DRESSING SITE NO DRESSING, IV N/A, GAIT STEADY, TEACHING COMPLETED, PATIENT ACKNOWLEDGES UNDERSTANDING YES, PROCEDURE APPOINTMENT COMPLETED AT 1210 PN BOTOX INJECTIONS FIRST INJECTION PRE PROCEDURE DIAGNOSIS CHRONIC MIGRAINE HEADACHES POST PROCEDURE DIAGNOSIS CHRONIC MIGRAINE HEADACHES PROCEDURE BOTOX INJECTION AT THE HEAD, NECK AND SHOULDERS SURGEON DR. JENNY HURTADO YEAST PUSHER NONE ANESTHESIA NONE PRE PROCEDURE NOTE THE PATIENT HAS HISTORY OF CHRONIC MIGRAINE HEADACHES. I EVALUATED THE PATIENT AND REVIEWED THE CHART. I WENT OVER THE RISKS, ALTERNATIVES, AND BENEFITS ASSOCIATED WITH THIS PROCEDURE. THE PATIENT WOULD LIKE TO PROCEED AND GAVE CONSENT TO PERFORM THE PROCEDURE. THE PATIENT DENIES UNEXPLAINABLE WEIGHT LOSS, FEVER, CHILLS, OR NEW CHANGES IN URINARY OR BOWEL CONTROL. THE PATIENT HAS BEEN DOING BOTOX INJECTIONS FOR MANY YEARS. THE LAST TIME WAS 3-4 MONTHS AGO. BEFORE DOING BOTOX INJECTIONS, THE PATIENT WAS HAVING HEADACHES EVERY DAY. SINCE DOING BOTOX INJECTIONS, SHE HAS 8 HEADACHES PER MONTH. THE PATIENT HAS USED THE MEDICATIONS LISTED IN THE CHART TO TREAT THE HEADACHES FOR MANY MONTHS BUT THE HEADACHES PERSIST DESCRIBED ABOVE DESCRIPTION OF PROCEDURE THE PATIENT WAS BROUGHT TO THE PROCEDURE ROOM AND PLACED IN THE SUPINE POSITION. A TIMEOUT WAS PERFORMED WHERE THE CONSENTED SITE WAS VERIFIED WITH EVERYONE IN THE ROOM FOR THE PROCEDURE I USED A SOLUTION OF 5 UNITS OF BOTOX PER EACH 0.1 ML OF THE SOLUTION. I USED A 30-GAUGE NEEDLE TO INJECT THE SOLUTION AT THE SELECTED LOCATIONS. I INJECTED FIRST THE RIGHT AND LEFT RESOURCE TECHNICIAN MUSCLES. THE LANDMARK FOR BOTH INJECTIONS WAS APPROXIMATELY 1 CM ABOVE THE SUPERIOR MEDIAL EDGE OF THE EYEBROW. AFTER THESE TWO INJECTIONS, I INJECTED THE PROCERUS MUSCLE AT THE MIDLINE POINT BETWEEN THESE FIRST TWO INJECTIONS. THEN I PROCEEDED TO INJECT THE RIGHT AND LEFT FRONTALIS MUSCLE. TWO INJECTIONS WERE DONE IN EACH SIDE. THE FIRST INJECTION WAS DONE APPROXIMATELY 2 CM ABOVE THE FIRST INJECTION OF THE RESOURCE TECHNICIAN. THE SECOND INJECTION WAS DONE APPROXIMATELY 1.5 CM LATERAL TO THIS FIST INJECTION OF THE FRONTALIS OF EACH SIDE. AFTER THE INJECTIONS OVER THE FOREHEAD WERE DONE, THE PATIENT'S HEAD WAS TURNED TO THE LEFT SIDE AND WE STARTED TO WORK WITH THE RIGHT TEMPORALIS MUSCLE. FIRST INJECTION WAS DONE IN A VERTICAL LINE OF THE TRAGUS APPROXIMATELY 3 CM ABOVE THE TRAGUS. THE SECOND INJECTION WAS DONE APPROXIMATELY 2 CM ABOVE THE FIRST INJECTION. THE THIRD INJECTION WAS DONE APPROXIMATELY 1 CM FORWARD FROM THIS VERTICAL LINE CREATED AT THE LEVEL OF THE TRAGUS, PRISON BETWEEN THESE TWO INJECTIONS. THE FOURTH INJECTION WAS DONE APPROXIMATELY 1.5 CM BACK FROM THE SECOND INJECTION TO THE TEMPORALIS IN LINE TO THE MIDPORTION OF THE EAR. THEN, WE PROCEEDED TO INJECT THE LEFT TEMPORALIS MUSCLE. WE CLEANED THE AREA WITH ALCOHOL AND PROCEEDED TO PERFORM THE SAME FOR INJECTIONS DESCRIBED ABOVE BUT IN THE LEFT TEMPORALIS MUSCLE USING THE SAME LANDMARKS. AFTER THESE INJECTIONS WERE DONE, THE PATIENT WAS SEATED. FIRST, WE STARTED TO INJECT THE LEFT AND RIGHT OCCIPITALIS MUSCLE. I INJECTED AT THE FOLLOWING PLACES IN THE RIGHT AND LEFT MUSCLE. THE FIRST INJECTION WAS DONE AT THE MIDPOINT POSITION BETWEEN THE MASTOID PROCESS AND THE INION OF THE OCCIPITAL PROTUBERANCE. THE SECOND INJECTION WAS DONE APPROXIMATELY 1.5 CM SUPERIOR AND LATERAL OF THIS POINT. THE THIRD INJECTION WAS DONE APPROXIMATELY 1.5 CM SUPERIOR AND MEDIAL TO THIS FIRST INJECTION. NEXT, I PROCEEDED TO INJECT THE RIGHT AND LEFT PARASPINAL MUSCLES. LANDMARK OF THE INJECTION WERE APPROXIMATELY: FIRST INJECTION 3 CM BELOW THE INION AND 1 CM LATERAL TO THE MIDLINE AND SECOND INJECTION AT EACH SIDE WAS DONE APPROXIMATELY 1.5 CM SUPERIOR AND LATERAL OF THE FIRST INJECTION. THE LAST GROUP OF INJECTIONS WAS DONE OVER THE RIGHT AND LEFT TRAPEZIUS MUSCLE OVER THE SHOULDERS AREA. THE FIRST INJECTION WAS DONE AT THE MIDPOINT BETWEEN THE INFLECTION POINT BETWEEN THE NECK AND SHOULDER AND THE ACROMION. THE SECOND AND THIRD INJECTIONS WERE DONE APPROXIMATELY 2.5 CM LATERAL AND MEDIAL FROM THIS FIRST INJECTION. SAME TARGETS WERE USED IN THE RIGHT AND LEFT SIDE. IN TOTAL, I INJECTED 155 UNITS OF BOTOX. THE MEDICATIONS WERE VERIFIED WITH THE NURSE. PROCEDURE WAS DONE WITHOUT EVIDENCE OF PARESTHESIA OR ANY COMPLICATIONS. THE PATIENT TOLERATED THE PROCEDURE VERY WELL. ESTIMATED BLOOD LOSS WAS LESS THAN 5 ML. THE PATIENT WAS SENT TO THE RECOVERY ROOM FOR OBSERVATIONS. INJECTIONS WERE DONE AFTER CLEANING WITH ALCOHOL, USING ASEPTIC TECHNIQUES POST PROCEDURE NOTE THE PROCEDURE DONE WAS DISCUSSED WITH THE PATIENT. THE PATIENT WILL BE SEEN IN A FOLLOW UP IN THE NEXT FEW WEEKS. I AM LOOKING FOR LONG LASTING PAIN RELIEF FOR THE PATIENT WITH THIS INTERVENTION. INSTRUCTIONS WERE GIVEN, QUESTIONS WERE ANSWERED, AND THE PATIENT EXPRESSED UNDERSTANDING AND AGREES WITH THE PLAN. I, MILA GUIDRY, DOCUMENTED THE ABOVE INFORMATION ACTING A SCRIBE FOR DR. HURTADO. I HAVE REVIEWED THE ABOVE DOCUMENT, WRITTEN BY MILA GUIDRY, FISCAL SERVICES DIRECTOR, AND I VERIFY THAT IT IS ACCURATE VISIT CODES PROCEDURE CODES 12419 CHEMODENERV MUSC MIGRAINE DISPOSITION & COMMUNICATION FOLLOW UP FOLLOW UP WITH STEEPING PRESS TENDER (REASON: PSOT BOTOX INJECTIONS TO HEAD, NECK AND SHOULDERS) ELECTRONICALLY SIGNED BY JENNY HURTADO MD, MD ON 04/18/2021 AT 01:33 PM EDT DISCLAIMER : THIS IS A VISIT SUMMARY EXTRACTED FROM THE [facility] CHART. IT IS NOT A COPY OF THE [facility] PROGRESS NOTE. DAMON
== END ==
LOC: M PAIN 10:40
PROVIDERS: ATTEND Anesthesiology
DX: G43.709 Chronic migraine without aura, not intractable, without status migrainosus (principal); G47.30 Sleep apnea, unspecified; J45.909 Unspecified asthma, uncomplicated; Z86.59 Personal history of other mental and behavioral disorders; Z79.899 Other long term (current) drug therapy
CPT/HCPCS: 64615; J0585

== ENCOUNTER → 2021-04-26 | Outpatient (REF) | payer MEDICARE, BC | LOC: M SFHCPLAZ 16:56 | PROVIDERS: ATTEND Physician Assistant | DX: R35.0 Frequency of micturition (principal) ==

== ENCOUNTER → 2021-05-17 | Outpatient (REF) | payer MEDICARE, BC ==
[2021-05-17 13:06] LABS: APPEARANCE, URINE HAZY (CLEAR); BACTERIA, URINE AUTO NEGATIVE (NEGATIVE); BILIRUBIN, URINE AUTO NEGATIVE (NEGATIVE); BLOOD, URINE BLOOD NEGATIVE (NEGATIVE); COLOR, URINE YELLOW (YELLOW); GLUCOSE, URINE (UA) AUTO NEGATIVE (NEGATIVE); KETONE, URINE AUTO NEGATIVE (NEGATIVE); LEUKOCYTE ESTERASE, URINE AUTO NEGATIVE (NEGATIVE); MUCUS, URINE SMALL (NEGATIVE); NITRITE, URINE AUTO NEGATIVE (NEGATIVE); PROTEIN, URINE AUTO NEGATIVE (NEGATIVE); RBC, URINE AUTO 0 /HPF (0-3); SPECIFIC GRAVITY URINE AUTO 1.014 (1.002-1.035); SQUAMOUS EPITHELIAL CELL UR AU 0 /HPF (0-6); WBC, URINE AUTO 0 /HPF (0-3)
== END ==
LOC: M SFHCPLAZ 12:28
PROVIDERS: ATTEND Physician Assistant Medical
DX: R35.0 Frequency of micturition (principal)
CPT/HCPCS: 81001; 87086; G0463

== ENCOUNTER → 2021-06-15 | Outpatient (CLI) | payer MEDICARE, BC | LOC: M PAIN 14:45 | PROVIDERS: ATTEND Nurse Practitioner Family | DX: G89.29 Other chronic pain (principal); G43.009 Migraine without aura, not intractable, without status migrainosus; J45.909 Unspecified asthma, uncomplicated; F32.9 Major depressive disorder, single episode, unspecified; F41.9 Anxiety disorder, unspecified; G43.909 Migraine, unspecified, not intractable, without status migrainosus; Z79.899 Other long term (current) drug therapy; Z91.018 Allergy to other foods ==

== ENCOUNTER → 2021-06-28 | Outpatient (REF) | payer MEDICARE, BC ==
[2021-06-28 13:43] LABS: APPEARANCE, URINE CLEAR (CLEAR); BACTERIA, URINE AUTO NEGATIVE (NEGATIVE); BILIRUBIN, URINE AUTO NEGATIVE (NEGATIVE); BLOOD, URINE BLOOD NEGATIVE (NEGATIVE); COLOR, URINE YELLOW (YELLOW); GLUCOSE, URINE (UA) AUTO NEGATIVE (NEGATIVE); KETONE, URINE AUTO NEGATIVE (NEGATIVE); LEUKOCYTE ESTERASE, URINE AUTO NEGATIVE (NEGATIVE); NITRITE, URINE AUTO NEGATIVE (NEGATIVE); PROTEIN, URINE AUTO NEGATIVE (NEGATIVE); RBC, URINE AUTO 0 /HPF (0-3); SPECIFIC GRAVITY URINE AUTO 1.005 (1.002-1.035); SQUAMOUS EPITHELIAL CELL UR AU 0 /HPF (0-6); UROBILINOGEN, URINE AUTO 0.2 mg/dL (0.0-2.0); WBC, URINE AUTO 0 /HPF (0-3)
== END ==
LOC: M SFHCPLAZ 12:47
PROVIDERS: ATTEND Physician Assistant Medical
DX: N30.90 Cystitis, unspecified without hematuria (principal)
CPT/HCPCS: 81001; 81002; 87086; G0463

== ENCOUNTER → 2021-07-11 | Outpatient (CLI) | payer MEDICARE, BC ==
[2021-07-11 10:38] LABS: APPEARANCE, URINE HAZY (CLEAR); BACTERIA, URINE AUTO 1+ (NEGATIVE); BILIRUBIN, URINE AUTO NEGATIVE (NEGATIVE); BLOOD, URINE BLOOD 3+ (NEGATIVE); COLOR, URINE YELLOW (YELLOW); GLUCOSE, URINE (UA) AUTO NEGATIVE (NEGATIVE); KETONE, URINE AUTO NEGATIVE (NEGATIVE); LEUKOCYTE ESTERASE, URINE AUTO NEGATIVE (NEGATIVE); MUCUS, URINE SMALL (NEGATIVE); NITRITE, URINE AUTO NEGATIVE (NEGATIVE); PROTEIN, URINE AUTO NEGATIVE (NEGATIVE); RBC, URINE AUTO 28 /HPF (0-3); SQUAMOUS EPITHELIAL CELL UR AU 2 /HPF (0-6); UROBILINOGEN, URINE AUTO 0.2 mg/dL (0.0-2.0); WBC, URINE AUTO 2 /HPF (0-3)
== END ==
LOC: M LAB 09:28
PROVIDERS: ATTEND Physician Assistant Medical
DX: N30.90 Cystitis, unspecified without hematuria (principal)

== ENCOUNTER → 2021-08-23 | Outpatient (CLI) | payer MEDICARE, BC | LOC: M LABSMTC 09:21 | PROVIDERS: ATTEND Anesthesiology | DX: Z01.812 Encounter for preprocedural laboratory examination (principal); Z11.52 Encounter for screening for COVID-19 ==

== ENCOUNTER → 2021-08-28 | Outpatient (CLI) | payer MEDICARE, BC | LOC: M PAIN 10:40 | PROVIDERS: ATTEND Anesthesiology | DX: G43.009 Migraine without aura, not intractable, without status migrainosus (principal); J45.909 Unspecified asthma, uncomplicated; F32.A Depression, unspecified; F41.9 Anxiety disorder, unspecified; E66.01 Morbid (severe) obesity due to excess calories; E89.0 Postprocedural hypothyroidism; Z79.1 Long term (current) use of non-steroidal anti-inflammatories (NSAID); Z79.899 Other long term (current) drug therapy; Z91.018 Allergy to other foods | CPT/HCPCS: 64615; J0585 ==

== ENCOUNTER → 2021-09-28 | Outpatient (CLI) | payer MEDICARE, BC | LOC: M PAIN 11:00 | PROVIDERS: ATTEND Nurse Practitioner Family | DX: G43.009 Migraine without aura, not intractable, without status migrainosus (principal); G89.29 Other chronic pain; G47.30 Sleep apnea, unspecified; J45.909 Unspecified asthma, uncomplicated; Z86.59 Personal history of other mental and behavioral disorders; Z91.018 Allergy to other foods; Z79.899 Other long term (current) drug therapy ==

== ENCOUNTER → 2021-11-28 | Outpatient (CLI) | payer MEDICARE, BC ==
[2021-11-28 10:04] LABS: BASO % 0.5 % (0.0-1.0); EOS # 0.2 10^3/uL (0.0-0.5); EOS % 3.3 % (0.0-3.0); HEMATOCRIT 39.5 % (36.0-47.0); HEMOGLOBIN 13.5 g/dl (12.0-15.5); LYMPH # 2.2 10^3/uL (1.5-5.0); LYMPH % 37.9 % (24.0-44.0); MEAN CORPUSCULAR HEMOGLOBIN 31.3 pg (27.0-33.0); MEAN CORPUSCULAR HGB CONC 34.2 g/dl (32.0-36.5); MEAN CORPUSCULAR VOLUME 91.4 fl (80.0-96.0); MONO # 0.5 10^3/uL (0.0-0.8); MONO % 8.8 % (2.0-8.0); NEUTROPHILS # 2.9 10^3/uL (1.5-8.5); NEUTROPHILS % 49.2 % (36.0-66.0); PLATELET COUNT, AUTOMATED 254 10^3/uL (150-450); RED BLOOD COUNT 4.32 10^6/uL (4.00-5.40); WHITE BLOOD COUNT 5.8 10^3/uL (4.0-10.0)
[2021-11-28 10:40] LABS: CHOLESTEROL RISK RATIO 4.018 (<5); FREE T4 1.16 NG/DL (0.76-1.46); PTH INTACT 42.9 PG/ML (18.5-88.0); THYROID STIMULATING HORMONE 0.355 uIU/ML (0.358-3.740); TOTAL 25(OH) VITAMIN D 55.9 NG/ML (30.0-100.0)
== END ==
LOC: M LAB 09:06
PROVIDERS: ATTEND Physician Assistant Medical
DX: E55.9 Vitamin D deficiency, unspecified (principal); Z13.1 Encounter for screening for diabetes mellitus; K21.9 Gastro-esophageal reflux disease without esophagitis; E03.9 Hypothyroidism, unspecified; Z13.220 Encounter for screening for lipoid disorders

== ENCOUNTER → 2021-12-06 | Outpatient (CLI) | payer MEDICARE, BC | LOC: M LABSMTC 10:17 | PROVIDERS: ATTEND Anesthesiology | DX: Z11.52 Encounter for screening for COVID-19 (principal); Z20.822 Contact with and (suspected) exposure to COVID-19 ==

== ENCOUNTER → 2021-12-11 | Outpatient (CLI) | payer MEDICARE, BC | LOC: M PAIN 08:30 | PROVIDERS: ATTEND Anesthesiology | DX: G43.709 Chronic migraine without aura, not intractable, without status migrainosus (principal); J45.909 Unspecified asthma, uncomplicated; F32.A Depression, unspecified; F41.9 Anxiety disorder, unspecified; I49.9 Cardiac arrhythmia, unspecified; E89.0 Postprocedural hypothyroidism; G51.33 Clonic hemifacial spasm, bilateral; Z91.018 Allergy to other foods; Z79.1 Long term (current) use of non-steroidal anti-inflammatories (NSAID); Z79.899 Other long term (current) drug therapy | CPT/HCPCS: 64615; J0585 ==

== ENCOUNTER → 2022-01-30 | Outpatient (CLI) | payer MEDICARE, BC ==
[2022-01-30 09:58] LABS: FREE T4 1.14 NG/DL (0.76-1.46); THYROID STIMULATING HORMONE 0.419 uIU/ML (0.358-3.740)
[2022-01-30 09:59] LABS: THYROGLOBULIN ANTIBODY < 15.0 U/ML (<60.0)
== END ==
LOC: M LAB 08:55
PROVIDERS: ATTEND Student in an Organized Health Care Education/Training Program
DX: C73 Malignant neoplasm of thyroid gland (principal); E89.0 Postprocedural hypothyroidism

== ENCOUNTER → 2022-02-28 | Outpatient (CLI) | payer MEDICARE, BC | LOC: M PAIN 10:15 | PROVIDERS: ATTEND Nurse Practitioner Family | DX: G43.009 Migraine without aura, not intractable, without status migrainosus (principal); G89.29 Other chronic pain; J45.909 Unspecified asthma, uncomplicated; F41.9 Anxiety disorder, unspecified; F32.A Depression, unspecified; Z91.018 Allergy to other foods; Z79.899 Other long term (current) drug therapy ==

== ENCOUNTER → 2022-03-06 | Outpatient (CLI) | payer MEDICARE, BC | LOC: M PAIN 13:30 | PROVIDERS: ATTEND Anesthesiology | DX: G43.709 Chronic migraine without aura, not intractable, without status migrainosus (principal); M26.609 Unspecified temporomandibular joint disorder, unspecified side; G24.9 Dystonia, unspecified; J45.909 Unspecified asthma, uncomplicated; F32.A Depression, unspecified; F41.9 Anxiety disorder, unspecified; Z85.850 Personal history of malignant neoplasm of thyroid; G51.8 Other disorders of facial nerve; Z79.1 Long term (current) use of non-steroidal anti-inflammatories (NSAID); Z79.899 Other long term (current) drug therapy; Z91.018 Allergy to other foods ==

== ENCOUNTER → 2022-03-27 | Outpatient (CLI) | payer MEDICARE, BC | LOC: M PAIN 11:00 | PROVIDERS: ATTEND Anesthesiology | DX: G43.709 Chronic migraine without aura, not intractable, without status migrainosus (principal); G47.30 Sleep apnea, unspecified; J45.909 Unspecified asthma, uncomplicated; Z86.59 Personal history of other mental and behavioral disorders; Z91.018 Allergy to other foods; Z79.899 Other long term (current) drug therapy | CPT/HCPCS: 64615; J0585 ==

== ENCOUNTER → 2022-05-29 | Outpatient (CLI) | payer MEDICARE, BC | LOC: M PAIN 14:45 | PROVIDERS: ATTEND Anesthesiology | DX: G43.909 Migraine, unspecified, not intractable, without status migrainosus (principal); J45.909 Unspecified asthma, uncomplicated; F32.A Depression, unspecified; F41.9 Anxiety disorder, unspecified; E66.01 Morbid (severe) obesity due to excess calories; Z85.850 Personal history of malignant neoplasm of thyroid; Z91.018 Allergy to other foods ==

== ENCOUNTER → 2022-07-12 | Outpatient (CLI) | payer MEDICARE, BC | LOC: M LABSMTC 11:16 | PROVIDERS: ATTEND Anesthesiology | DX: Z01.812 Encounter for preprocedural laboratory examination (principal); Z20.822 Contact with and (suspected) exposure to COVID-19 ==

== ENCOUNTER → 2022-07-16 | Outpatient (CLI) | payer MEDICARE, BC | LOC: M PAIN 13:30 | PROVIDERS: ATTEND Anesthesiology | DX: G43.009 Migraine without aura, not intractable, without status migrainosus (principal); J45.909 Unspecified asthma, uncomplicated; F32.A Depression, unspecified; F41.9 Anxiety disorder, unspecified; G51.33 Clonic hemifacial spasm, bilateral; E66.01 Morbid (severe) obesity due to excess calories; G90.A Postural orthostatic tachycardia syndrome [POTS]; Z68.33 Body mass index [BMI] 33.0-33.9, adult; Z79.1 Long term (current) use of non-steroidal anti-inflammatories (NSAID); Z79.890 Hormone replacement therapy; Z79.899 Other long term (current) drug therapy; E89.0 Postprocedural hypothyroidism; Z85.850 Personal history of malignant neoplasm of thyroid; Z91.018 Allergy to other foods | CPT/HCPCS: 64615; J0585 ==

== ENCOUNTER → 2022-07-31 | Outpatient (REF) | payer MEDICARE, BC ==
[~2022-07-31] MED LIST changes: +BACL1TAB8 PO; -BOTOX THERAPEUTIC 100 UNIT VIAL (J0585 PER 1 UNIT) IM ONE; +CLON0.5T17 PO; +HYDR-643 PO; -NORCO, ANEXSIA 5/325MG TABLET (HYDROcodone/ACETAMINOPHEN) As Ordered ONE; +PROP60TA14 PO; +SERT-141 PO; +SULF1TAB30 PO; +SYNT175T2 PO; +TOPI200T7 PO; +VENTAER INH; +WELLTAB40 PO; +[UNRECOGNIZED DRUG - CODE] PO; -diazePAM 5MG TABLET As Ordered ONE
== END ==
LOC: M SFHCPLAZ 17:03
PROVIDERS: ATTEND Physician Assistant Medical
DX: K13.70 Unspecified lesions of oral mucosa (principal)

== ENCOUNTER 2022-08-01 14:10 | Outpatient (CLI) | payer MEDICARE, BC ==
[~2022-08-01] VITALS: Ht 170.2 cm; Wt 95.5 kg
[2022-08-01 14:40] VITALS: BP 126/69
[2022-08-01] MEDS ORDERED: SYNT175T2 PO (14:52)
[2022-08-01] MEDS ORDERED: WELLTAB40 PO (14:52)
[2022-08-01] MEDS ORDERED: BACL1TAB8 PO (14:52)
[2022-08-01] MEDS ORDERED: SERT-141 PO (14:52)
[2022-08-01] MEDS ORDERED: SULF1TAB30 PO (14:52)
[2022-08-01] MEDS ORDERED: [UNRECOGNIZED DRUG - CODE] PO (14:52)
[2022-08-01] MEDS ORDERED: TOPI200T7 PO (14:52)
[2022-08-01] MEDS ORDERED: CLON0.5T17 PO (14:52)
[2022-08-01] MEDS ORDERED: HYDR-643 PO (14:56)
[2022-08-01] MEDS ORDERED: PROP60TA14 PO (14:56)
[2022-08-01] MEDS ORDERED: VENTAER INH (14:56)
[2022-08-01] MEDS ORDERED: NS 1,000 ML IV SCH (15:00)
[2022-08-01 17:10] VITALS: BP 125/58
== END 2022-08-01 17:10 | disposition home or self-care (01) ==
LOC: M INFU 14:10
PROVIDERS: ATTEND Internal Medicine Hematology
DX: I49.8 Other specified cardiac arrhythmias (principal)

== ENCOUNTER 2022-08-08 12:30 | Outpatient (CLI) | payer MEDICARE, BC ==
[~2022-08-08] VITALS: Ht 170.2 cm; Wt 95.4 kg
[2022-08-08 12:30] VITALS: BP 137/79
[~2022-08-08 12:30] MED LIST changes: +NS 1,000 ML IV SCH
[2022-08-08 14:50] VITALS: BP 135/78
== END 2022-08-08 15:00 | disposition home or self-care (01) ==
LOC: M INFU 12:30
PROVIDERS: ATTEND Physician Assistant Medical
DX: G90.A Postural orthostatic tachycardia syndrome [POTS] (principal)

== ENCOUNTER 2022-08-16 12:10 | Outpatient (CLI) | payer MEDICARE, BC ==
[~2022-08-16] VITALS: Ht 170.2 cm; Wt 95.5 kg
[~2022-08-16 12:10] MED LIST changes: -NS 1,000 ML IV SCH
[2022-08-16 12:24] VITALS: BP 142/72
[2022-08-16] MEDS ORDERED: NS 1,000 ML IV ONE (12:35)
[2022-08-16 14:00] VITALS: BP 154/18
[2022-08-16 14:30] VITALS: BP 144/77
== END 2022-08-16 14:30 | disposition home or self-care (01) ==
LOC: M INFU 12:10
PROVIDERS: ATTEND Physician Assistant Medical
DX: G90.A Postural orthostatic tachycardia syndrome [POTS] (principal)

== ENCOUNTER → 2022-09-18 | Outpatient (CLI) | payer MEDICARE, BC | LOC: M PAIN 09:45 | PROVIDERS: ATTEND Anesthesiology | DX: G89.29 Other chronic pain (principal); G43.709 Chronic migraine without aura, not intractable, without status migrainosus; J45.909 Unspecified asthma, uncomplicated; J30.9 Allergic rhinitis, unspecified; F32.A Depression, unspecified; F41.9 Anxiety disorder, unspecified; E66.01 Morbid (severe) obesity due to excess calories; G43.909 Migraine, unspecified, not intractable, without status migrainosus; G90.A Postural orthostatic tachycardia syndrome [POTS]; Z85.850 Personal history of malignant neoplasm of thyroid; Z79.890 Hormone replacement therapy; Z79.1 Long term (current) use of non-steroidal anti-inflammatories (NSAID); Z79.899 Other long term (current) drug therapy; Z91.018 Allergy to other foods ==

== ENCOUNTER → 2022-10-15 | Outpatient (CLI) | payer MEDICARE, BC | LOC: M LABSMTC 09:20 | PROVIDERS: ATTEND Anesthesiology | DX: Z01.812 Encounter for preprocedural laboratory examination (principal); Z11.52 Encounter for screening for COVID-19 ==

== ENCOUNTER → 2022-10-19 | Outpatient (CLI) | payer MEDICARE, BC ==
[~2022-10-19] MED LIST changes: +BOTOX THERAPEUTIC 100 UNIT VIAL IM ONE; +NORCO, ANEXSIA 5/325MG TABLET (HYDROcodone/ACETAMINOPHEN) As Ordered ONE; +diazePAM 5MG TABLET As Ordered ONE
== END ==
LOC: M PAIN 11:00
PROVIDERS: ATTEND Anesthesiology
DX: G43.709 Chronic migraine without aura, not intractable, without status migrainosus (principal); G47.30 Sleep apnea, unspecified; J45.909 Unspecified asthma, uncomplicated; Z86.59 Personal history of other mental and behavioral disorders; Z91.018 Allergy to other foods; Z79.899 Other long term (current) drug therapy
CPT/HCPCS: 64615; J0585

== ENCOUNTER → 2022-11-28 | Outpatient (CLI) | payer MEDICARE, BC ==
[~2022-11-28] MED LIST changes: -BOTOX THERAPEUTIC 100 UNIT VIAL IM ONE; -NORCO, ANEXSIA 5/325MG TABLET (HYDROcodone/ACETAMINOPHEN) As Ordered ONE; -diazePAM 5MG TABLET As Ordered ONE
== END ==
LOC: M PAIN 15:45 → M TMPAIN 15:45
PROVIDERS: ATTEND Anesthesiology
DX: G89.29 Other chronic pain (principal); G43.009 Migraine without aura, not intractable, without status migrainosus; J45.909 Unspecified asthma, uncomplicated; F32.A Depression, unspecified; E66.01 Morbid (severe) obesity due to excess calories; G90.A Postural orthostatic tachycardia syndrome [POTS]; E89.0 Postprocedural hypothyroidism; Z79.1 Long term (current) use of non-steroidal anti-inflammatories (NSAID); Z79.890 Hormone replacement therapy; Z79.899 Other long term (current) drug therapy; Z85.850 Personal history of malignant neoplasm of thyroid; Z91.018 Allergy to other foods

== ENCOUNTER → 2022-12-05 | Outpatient (CLI) | payer BC, MEDICARE | LOC: M CARPUL 13:47 | PROVIDERS: ATTEND Physician Assistant Medical | DX: J45.31 Mild persistent asthma with (acute) exacerbation (principal) ==

== ENCOUNTER → 2022-12-24 | Outpatient (CLI) | payer BC, MEDICARE ==
[~2022-12-24] MED LIST changes: +METHACHOLINE KIT INH ONE
== END ==
LOC: M CARPUL 12-17 14:37
PROVIDERS: ATTEND Physician Assistant Medical
DX: J45.31 Mild persistent asthma with (acute) exacerbation (principal)
CPT/HCPCS: 94070; J7674

== ENCOUNTER → 2023-01-11 | Outpatient (CLI) | payer BC ==
[~2023-01-11] MED LIST changes: -METHACHOLINE KIT INH ONE
[2023-01-11 11:57] LABS: ALBUMIN 3.7 G/DL (3.2-5.2); BILIRUBIN,TOTAL 0.4 MG/DL (0.3-1.2); CALCIUM LEVEL 8.9 MG/DL (8.5-10.1); CHOLESTEROL RISK RATIO 3.9 (<5); CREATININE FOR GFR 1.08 MG/DL (0.55-1.30); GLOMERULAR FILTRATION RATE 58.4 (>58); HEMOGLOBIN A1c 4.4 % (4.0-6.0); LDL CHOLESTEROL 105.6 MG/DL (<100); POTASSIUM SERUM 4.4 MMOL/L (3.5-5.1); TOTAL PROTEIN 6.2 G/DL (5.7-8.2)
[2023-01-11 11:58] LABS: FREE T4 1.21 NG/DL (0.89-1.76); PTH INTACT 34.8 PG/ML (18.5-88.0); THYROID STIMULATING HORMONE 3.89 uIU/ML (0.55-4.78)
[2023-01-11 11:59] LABS: TOTAL 25(OH) VITAMIN D 26.9 NG/ML (20.0-100.0)
== END ==
LOC: M LAB 10:30
PROVIDERS: ATTEND Physician Assistant Medical
DX: E03.9 Hypothyroidism, unspecified (principal); E55.9 Vitamin D deficiency, unspecified; Z13.1 Encounter for screening for diabetes mellitus; Z13.220 Encounter for screening for lipoid disorders

== ENCOUNTER → 2023-01-21 | Outpatient (REF) | payer MEDICARE, BC | LOC: M SFHCPLAZ 08:41 | PROVIDERS: ATTEND Physician Assistant Medical | DX: Z53.9 Procedure and treatment not carried out, unspecified reason (principal) ==

== ENCOUNTER → 2023-01-21 | Outpatient (CLI) | payer MEDICARE, BC ==
[~2023-01-21] MED LIST changes: +BOTOX THERAPEUTIC 100 UNIT VIAL IM ONE; +NORCO, ANEXSIA 5/325MG TABLET (HYDROcodone/ACETAMINOPHEN) As Ordered ONE; +diazePAM 5MG TABLET As Ordered ONE
== END ==
LOC: M PAIN 08:00
PROVIDERS: ATTEND Anesthesiology
DX: G43.009 Migraine without aura, not intractable, without status migrainosus (principal); J45.909 Unspecified asthma, uncomplicated; F32.A Depression, unspecified; F41.9 Anxiety disorder, unspecified; E66.01 Morbid (severe) obesity due to excess calories; G90.A Postural orthostatic tachycardia syndrome [POTS]; Z68.33 Body mass index [BMI] 33.0-33.9, adult; Z79.890 Hormone replacement therapy; Z79.899 Other long term (current) drug therapy; Z91.018 Allergy to other foods
CPT/HCPCS: 64615; J0585

== ENCOUNTER → 2023-03-04 | Outpatient (CLI) | payer MEDICARE, BC ==
[~2023-03-04] MED LIST changes: -BOTOX THERAPEUTIC 100 UNIT VIAL IM ONE; -NORCO, ANEXSIA 5/325MG TABLET (HYDROcodone/ACETAMINOPHEN) As Ordered ONE; -diazePAM 5MG TABLET As Ordered ONE
== END ==
LOC: M PAIN 10:30 → M TMPAIN 10:30
PROVIDERS: ATTEND Nurse Practitioner Family
DX: G43.009 Migraine without aura, not intractable, without status migrainosus (principal); J45.909 Unspecified asthma, uncomplicated; F32.A Depression, unspecified; F41.9 Anxiety disorder, unspecified; E89.0 Postprocedural hypothyroidism; G90.A Postural orthostatic tachycardia syndrome [POTS]; Z79.1 Long term (current) use of non-steroidal anti-inflammatories (NSAID); Z79.890 Hormone replacement therapy; Z79.899 Other long term (current) drug therapy; Z91.018 Allergy to other foods

== ENCOUNTER → 2023-03-04 | Outpatient (REF) | payer MEDICARE, BC | LOC: M SFHCPLAZ 14:15 | PROVIDERS: ATTEND Physician Assistant Medical | DX: E03.9 Hypothyroidism, unspecified (principal) ==

== ENCOUNTER → 2023-03-18 | Outpatient (CLI) | payer MEDICARE, BC ==
[2023-03-18 10:27] LABS: THYROID STIMULATING HORMONE 2.397 uIU/ML (0.55-4.78)
[2023-03-18 10:28] LABS: FREE T4 1.15 NG/DL (0.89-1.76)
== END ==
LOC: M LAB 09:08
PROVIDERS: ATTEND Physician Assistant Medical
DX: E03.9 Hypothyroidism, unspecified (principal)

== ENCOUNTER → 2023-04-30 | Outpatient (CLI) | payer MEDICARE, BC | LOC: M PAIN 08:30 | PROVIDERS: ATTEND Anesthesiology | DX: G43.009 Migraine without aura, not intractable, without status migrainosus (principal); G89.29 Other chronic pain; G47.30 Sleep apnea, unspecified; J45.909 Unspecified asthma, uncomplicated; Z86.59 Personal history of other mental and behavioral disorders; Z91.018 Allergy to other foods; Z79.899 Other long term (current) drug therapy ==

== ENCOUNTER → 2023-05-20 | Outpatient (CLI) | payer MEDICARE, BC ==
[~2023-05-20] MED LIST changes: +BOTOX THERAPEUTIC 100 UNIT VIAL IM ONE; +diazePAM 5MG TABLET As Ordered ONE; +oxyCODONE 5MG TAB As Ordered ONE
== END ==
LOC: M PAIN 13:00
PROVIDERS: ATTEND Anesthesiology
DX: G43.709 Chronic migraine without aura, not intractable, without status migrainosus (principal); J45.909 Unspecified asthma, uncomplicated; F32.A Depression, unspecified; F41.9 Anxiety disorder, unspecified; Z85.850 Personal history of malignant neoplasm of thyroid; E89.0 Postprocedural hypothyroidism; Z79.1 Long term (current) use of non-steroidal anti-inflammatories (NSAID); Z79.890 Hormone replacement therapy; Z79.899 Other long term (current) drug therapy; Z91.018 Allergy to other foods
CPT/HCPCS: 64615; J0585

== ENCOUNTER → 2023-07-03 | Outpatient (CLI) | payer BC, MEDICARE ==
[~2023-07-03] MED LIST changes: -BOTOX THERAPEUTIC 100 UNIT VIAL IM ONE; -diazePAM 5MG TABLET As Ordered ONE; -oxyCODONE 5MG TAB As Ordered ONE
== END ==
LOC: M TMPAIN 11:30 → M PAIN 11:30
PROVIDERS: ATTEND Anesthesiology
DX: G43.709 Chronic migraine without aura, not intractable, without status migrainosus (principal); J45.909 Unspecified asthma, uncomplicated; F32.A Depression, unspecified; F41.9 Anxiety disorder, unspecified; E66.01 Morbid (severe) obesity due to excess calories; G43.909 Migraine, unspecified, not intractable, without status migrainosus; E89.0 Postprocedural hypothyroidism; Z79.890 Hormone replacement therapy; Z79.1 Long term (current) use of non-steroidal anti-inflammatories (NSAID); Z79.899 Other long term (current) drug therapy; Z85.850 Personal history of malignant neoplasm of thyroid; Z91.018 Allergy to other foods

== ENCOUNTER → 2023-07-25 | Outpatient (CLI) | payer BC, MEDICARE ==
[2023-07-25 16:20] LABS: FREE T4 1.23 NG/DL (0.89-1.76)
[2023-07-25 16:21] LABS: THYROID STIMULATING HORMONE 3.401 uIU/ML (0.55-4.78)
== END ==
LOC: M PLALAB 13:50
PROVIDERS: ATTEND Physician Assistant Medical
DX: E03.9 Hypothyroidism, unspecified (principal)

== ENCOUNTER → 2023-08-28 | Outpatient (CLI) | payer BC, MEDICARE ==
[~2023-08-28] MED LIST changes: +BOTOX THERAPEUTIC 100 UNIT VIAL IM ONE; +diazePAM 5MG TABLET As Ordered ONE; +oxyCODONE 5MG TAB As Ordered ONE
== END ==
LOC: M PAIN 10:00
PROVIDERS: ATTEND Anesthesiology
DX: G43.009 Migraine without aura, not intractable, without status migrainosus (principal); Z80.42 Family history of malignant neoplasm of prostate; Z91.018 Allergy to other foods; Z79.899 Other long term (current) drug therapy
CPT/HCPCS: 64615; J0585

== ENCOUNTER → 2023-09-04 | Outpatient (CLI) | payer BC, MEDICARE ==
[~2023-09-04] MED LIST changes: -BOTOX THERAPEUTIC 100 UNIT VIAL IM ONE; -diazePAM 5MG TABLET As Ordered ONE; -oxyCODONE 5MG TAB As Ordered ONE
[2023-09-04 15:55] LABS: BASO % 0.4 % (0.0-1.0); EOS # 0.2 10^3/uL (0.0-0.5); EOS % 2.9 % (0.0-3.0); HEMATOCRIT 39.2 % (36.0-47.0); HEMOGLOBIN 12.2 g/dl (12.0-15.5); LYMPH # 2.2 10^3/uL (1.5-5.0); LYMPH % 32.4 % (24.0-44.0); MEAN CORPUSCULAR HEMOGLOBIN 28.2 pg (27.0-33.0); MEAN CORPUSCULAR HGB CONC 31.1 g/dl (32.0-36.5); MEAN CORPUSCULAR VOLUME 90.7 fl (80.0-96.0); MONO # 0.5 10^3/uL (0.0-0.8); MONO % 7.8 % (2.0-8.0); NEUTROPHILS # 3.9 10^3/uL (1.5-8.5); NEUTROPHILS % 56.4 % (36.0-66.0); PLATELET COUNT, AUTOMATED 291 10^3/uL (150-450); RED BLOOD COUNT 4.32 10^6/uL (4.00-5.40); WHITE BLOOD COUNT 6.8 10^3/uL (4.0-10.0)
[2023-09-04 16:07] LABS: ERYTHROCYTE SEDIMENTATION RATE 15 mm/hr (0-20)
[2023-09-04 16:18] LABS: C REACTIVE PROTEIN QUANTITATIV < 0.40 MG/DL (<1.0)
[2023-09-04 16:20] LABS: FERRITIN 5.6 NG/ML (7.3-270.7); FREE T4 1.36 NG/DL (0.89-1.76); HEMOGLOBIN A1c 4.5 % (4.0-6.0); IRON (FE) 57 UG/DL (50-170)
[2023-09-04 16:21] LABS: THYROID STIMULATING HORMONE 4.732 uIU/ML (0.55-4.78)
== END ==
LOC: M PLALAB 14:17
PROVIDERS: ATTEND Physician Assistant Medical
DX: M79.89 Other specified soft tissue disorders (principal); K21.9 Gastro-esophageal reflux disease without esophagitis; E03.9 Hypothyroidism, unspecified; F41.9 Anxiety disorder, unspecified; Z13.1 Encounter for screening for diabetes mellitus

== ENCOUNTER → 2023-10-10 | Outpatient (CLI) | payer MEDICARE, BC | LOC: M PAIN 16:00 → M TMPAIN 16:00 | PROVIDERS: ATTEND Anesthesiology | DX: G43.009 Migraine without aura, not intractable, without status migrainosus (principal); G89.29 Other chronic pain; Z80.42 Family history of malignant neoplasm of prostate; Z91.018 Allergy to other foods; Z79.899 Other long term (current) drug therapy ==

== ENCOUNTER → 2023-10-22 | Outpatient (CLI) | payer BC, MEDICARE | LOC: M RAD 10:13 | PROVIDERS: ATTEND Physician Assistant Medical | DX: M79.89 Other specified soft tissue disorders (principal); R59.0 Localized enlarged lymph nodes ==

== ENCOUNTER → 2023-11-29 | Outpatient (CLI) | payer BC, MEDICARE ==
[~2023-11-29] MED LIST changes: +BOTOX THERAPEUTIC 100 UNIT VIAL IM ONE; +diazePAM 5MG TABLET As Ordered ONE; +oxyCODONE 5MG TAB As Ordered ONE
== END ==
LOC: M PAIN 14:30
PROVIDERS: ATTEND Anesthesiology
DX: G43.009 Migraine without aura, not intractable, without status migrainosus (principal); J45.909 Unspecified asthma, uncomplicated; F32.A Depression, unspecified; F41.9 Anxiety disorder, unspecified; Z79.899 Other long term (current) drug therapy; E66.01 Morbid (severe) obesity due to excess calories; Z79.890 Hormone replacement therapy; E89.0 Postprocedural hypothyroidism; Z91.018 Allergy to other foods; Z68.35 Body mass index [BMI] 35.0-35.9, adult
CPT/HCPCS: 64615; J0585

== ENCOUNTER → 2023-12-05 | Outpatient (CLI) | payer BC, MEDICARE ==
[~2023-12-05] MED LIST changes: -BOTOX THERAPEUTIC 100 UNIT VIAL IM ONE; -diazePAM 5MG TABLET As Ordered ONE; -oxyCODONE 5MG TAB As Ordered ONE
[2023-12-05 13:55] LABS: THYROID STIMULATING HORMONE 1.217 uIU/ML (0.55-4.78)
[2023-12-05 13:57] LABS: FREE T4 1.26 NG/DL (0.89-1.76)
== END ==
LOC: M PLALAB 11:19
PROVIDERS: ATTEND Physician Assistant Medical
DX: E03.9 Hypothyroidism, unspecified (principal)

== ENCOUNTER → 2024-01-13 | Outpatient (CLI) | payer BC, MEDICARE | LOC: M PAIN 16:00 | PROVIDERS: ATTEND Nurse Practitioner Family | DX: G43.709 Chronic migraine without aura, not intractable, without status migrainosus (principal); J45.909 Unspecified asthma, uncomplicated; F32.A Depression, unspecified; F41.9 Anxiety disorder, unspecified; E66.01 Morbid (severe) obesity due to excess calories; G43.909 Migraine, unspecified, not intractable, without status migrainosus; Z79.1 Long term (current) use of non-steroidal anti-inflammatories (NSAID); Z79.890 Hormone replacement therapy; Z79.899 Other long term (current) drug therapy; Z91.018 Allergy to other foods; Z68.38 Body mass index [BMI] 38.0-38.9, adult ==

== ENCOUNTER → 2024-01-14 | Outpatient (CLI) | payer BC, MEDICARE ==
[2024-01-14 14:15] LABS: BASO % 0.3 % (0.0-1.0); EOS # 0.1 10^3/uL (0.0-0.5); EOS % 0.9 % (0.0-3.0); HEMATOCRIT 38.4 % (36.0-47.0); HEMOGLOBIN 12.1 g/dl (12.0-15.5); LYMPH # 2.5 10^3/uL (1.5-5.0); LYMPH % 31.8 % (24.0-44.0); MEAN CORPUSCULAR HEMOGLOBIN 28.3 pg (27.0-33.0); MEAN CORPUSCULAR HGB CONC 31.5 g/dl (32.0-36.5); MEAN CORPUSCULAR VOLUME 89.7 fl (80.0-96.0); MONO # 0.8 10^3/uL (0.0-0.8); MONO % 10.1 % (2.0-8.0); NEUTROPHILS # 4.5 10^3/uL (1.5-8.5); NEUTROPHILS % 56.4 % (36.0-66.0); PLATELET COUNT, AUTOMATED 310 10^3/uL (150-450); RED BLOOD COUNT 4.28 10^6/uL (4.00-5.40); WHITE BLOOD COUNT 7.9 10^3/uL (4.0-10.0)
[2024-01-14 14:21] LABS: C REACTIVE PROTEIN QUANTITATIV < 0.40 MG/DL (<1.0)
[2024-01-14 14:22] LABS: IRON (FE) 49 UG/DL (50-170)
[2024-01-14 14:23] LABS: ALBUMIN 3.6 G/DL (3.2-5.2); ALKALINE PHOSPHATASE 57 U/L (46-116); ALT/SGPT 28 U/L (7.0-40); AST/SGOT 10 U/L (<34); BILIRUBIN,TOTAL 0.3 MG/DL (0.3-1.2); BLOOD UREA NITROGEN 21 MG/DL (9-23); CALCIUM LEVEL 9.1 MG/DL (8.5-10.1); CARBON DIOXIDE LEVEL 27 MMOL/L (20-31); CHLORIDE LEVEL 106 MMOL/L (98-107); CREATININE FOR GFR 0.97 MG/DL (0.55-1.30); FERRITIN 8.7 NG/ML (7.3-270.7); GLOMERULAR FILTRATION RATE > 60.0 (>58); GLUCOSE, FASTING 79 MG/DL (60-100); POTASSIUM SERUM 4.3 MMOL/L (3.5-5.1); SODIUM LEVEL 139 MMOL/L (136-145); TOTAL PROTEIN 6.5 G/DL (5.7-8.2)
[2024-01-14 15:17] LABS: ERYTHROCYTE SEDIMENTATION RATE 13 mm/hr (0-20)
== END ==
LOC: M PLALAB 09:12
PROVIDERS: ATTEND Physician Assistant Medical
DX: I10 Essential (primary) hypertension (principal)

== ENCOUNTER → 2024-03-03 | Outpatient (CLI) | payer BC, MEDICARE ==
[~2024-03-03] MED LIST changes: +BOTOX THERAPEUTIC 100 UNIT VIAL IM ONE; +diazePAM 5MG TABLET As Ordered ONE; +oxyCODONE 5MG TAB As Ordered ONE
== END ==
LOC: M PAIN 10:00
PROVIDERS: ATTEND Anesthesiology
DX: G43.009 Migraine without aura, not intractable, without status migrainosus (principal); J45.909 Unspecified asthma, uncomplicated; F32.A Depression, unspecified; F41.9 Anxiety disorder, unspecified; E66.01 Morbid (severe) obesity due to excess calories; Z79.1 Long term (current) use of non-steroidal anti-inflammatories (NSAID); Z79.890 Hormone replacement therapy; Z79.899 Other long term (current) drug therapy; Z91.018 Allergy to other foods
CPT/HCPCS: 64615; J0585

== ENCOUNTER → 2024-03-05 | Outpatient (CLI) | payer BC, MEDICARE ==
[~2024-03-05] MED LIST changes: -BOTOX THERAPEUTIC 100 UNIT VIAL IM ONE; -diazePAM 5MG TABLET As Ordered ONE; -oxyCODONE 5MG TAB As Ordered ONE
[2024-03-05 13:30] LABS: FREE T4 1.08 NG/DL (0.89-1.76); THYROID STIMULATING HORMONE 4.352 uIU/ML (0.55-4.78)
[2024-03-05 14:03] LABS: HEPATITIS C VIRUS ABY INDEX < 0.02 INDEX (<0.8)
== END ==
LOC: M PLALAB 11:23
PROVIDERS: ATTEND Physician Assistant Medical
DX: M06.00 Rheumatoid arthritis without rheumatoid factor, unspecified site (principal); E03.9 Hypothyroidism, unspecified

== ENCOUNTER → 2024-03-25 | Outpatient (CLI) | payer BC, MEDICARE ==
[~2024-03-25] VITALS: Ht 170.2 cm; Wt 106.8 kg
[~2024-03-25] MED LIST changes: +ALBUTEROL SULFATE 2.5MG/0.5ML INH NEB SOLN INH PRN; +EPINEPHrine INJ 1 MG/ML 1ML AMP IM PRN; +NS 1,000 ML IV SCH; +diphenhydrAMINE 50MG/ML VIAL IV PRN; +methylPREDNISolone 125MG 2ML VIAL IV PRN
[2024-03-25 13:00] VITALS: BP 153/72; O2SAT 93
[2024-03-25] MEDS: IRON SUCROSE 250 MG in NS 237.5 ML IV ONE (13:41)
[2024-03-25] MEDS: diphenhydrAMINE 25MG CAP PO ONE (13:41)
[2024-03-25 15:20] VITALS: BP 128/82; O2SAT 96
== END ==
LOC: M INFU 12:42
PROVIDERS: ATTEND Physician Assistant Medical
DX: E61.6 Vanadium deficiency (principal); Z91.09 Other allergy status, other than to drugs and biological substances; Z91.018 Allergy to other foods
CPT/HCPCS: 96365; 96366; J1756

== ENCOUNTER 2024-04-01 10:00 | Outpatient (CLI) | payer BC, MEDICARE ==
[~2024-04-01] VITALS: Ht 170.2 cm; Wt 106.8 kg
[2024-04-01 10:05] VITALS: BP 137/77; O2SAT 95
[2024-04-01] MEDS: diphenhydrAMINE 25MG CAP PO ONE (10:31)
[2024-04-01] MEDS: IRON SUCROSE 250 MG in NS 237.5 ML IV ONE (10:40)
[2024-04-01 12:15] VITALS: BP 131/77; O2SAT 97
== END 2024-04-01 12:15 ==
LOC: M INFU 10:00
PROVIDERS: ATTEND Physician Assistant Medical
DX: E61.6 Vanadium deficiency (principal)
CPT/HCPCS: 96365; J1756

== ENCOUNTER 2024-04-08 09:50 | Outpatient (CLI) | payer BC, MEDICARE ==
[~2024-04-08] VITALS: Ht 170.2 cm; Wt 106.8 kg
[2024-04-08] MEDS: diphenhydrAMINE 25MG CAP PO ONE (10:15)
[2024-04-08] MEDS: IRON SUCROSE 250 MG in NS 237.5 ML IV ONE (10:22)
[2024-04-08 11:54] VITALS: BP 146/80; O2SAT 95
== END 2024-04-08 11:55 | disposition home or self-care (01) ==
LOC: M INFU 09:50
PROVIDERS: ATTEND Physician Assistant Medical
DX: E61.6 Vanadium deficiency (principal)
CPT/HCPCS: 96365; J1756

== ENCOUNTER → 2024-04-17 | Outpatient (CLI) | payer BC, MEDICARE ==
[~2024-04-17] MED LIST changes: -ALBUTEROL SULFATE 2.5MG/0.5ML INH NEB SOLN INH PRN; -EPINEPHrine INJ 1 MG/ML 1ML AMP IM PRN; -NS 1,000 ML IV SCH; -diphenhydrAMINE 50MG/ML VIAL IV PRN; -methylPREDNISolone 125MG 2ML VIAL IV PRN
== END ==
LOC: M PAIN 14:30
PROVIDERS: ATTEND Nurse Practitioner Family
DX: G43.709 Chronic migraine without aura, not intractable, without status migrainosus (principal); J45.909 Unspecified asthma, uncomplicated; F32.A Depression, unspecified; F41.9 Anxiety disorder, unspecified; E66.01 Morbid (severe) obesity due to excess calories; G90.A Postural orthostatic tachycardia syndrome [POTS]; M75.02 Adhesive capsulitis of left shoulder; Z79.1 Long term (current) use of non-steroidal anti-inflammatories (NSAID); Z79.890 Hormone replacement therapy; Z79.899 Other long term (current) drug therapy; Z91.018 Allergy to other foods; Z68.38 Body mass index [BMI] 38.0-38.9, adult

== ENCOUNTER → 2024-06-02 | Outpatient (CLI) | payer BC, MEDICARE ==
[2024-06-02 19:26] LABS: FREE T4 1.31 NG/DL (0.89-1.76); THYROID STIMULATING HORMONE 0.886 uIU/ML (0.55-4.78)
== END ==
LOC: M PLALAB 14:46
PROVIDERS: ATTEND Physician Assistant Medical
DX: E03.9 Hypothyroidism, unspecified (principal)

== ENCOUNTER → 2024-06-11 | Outpatient (CLI) | payer BC, MEDICARE ==
[~2024-06-11] MED LIST changes: +BOTOX THERAPEUTIC 100 UNIT VIAL IM ONE; +diazePAM 5MG TABLET As Ordered ONE; +oxyCODONE 5MG TAB As Ordered ONE
== END ==
LOC: M PAIN 11:05
PROVIDERS: ATTEND Anesthesiology
DX: G43.709 Chronic migraine without aura, not intractable, without status migrainosus (principal); J45.909 Unspecified asthma, uncomplicated; F32.A Depression, unspecified; F41.9 Anxiety disorder, unspecified; E66.01 Morbid (severe) obesity due to excess calories; M75.02 Adhesive capsulitis of left shoulder; G90.A Postural orthostatic tachycardia syndrome [POTS]; Z79.890 Hormone replacement therapy; Z79.899 Other long term (current) drug therapy; Z91.018 Allergy to other foods
CPT/HCPCS: 64615; J0585

== ENCOUNTER → 2024-07-16 | Outpatient (CLI) | payer BC, MEDICARE ==
[~2024-07-16] MED LIST changes: -BOTOX THERAPEUTIC 100 UNIT VIAL IM ONE; -diazePAM 5MG TABLET As Ordered ONE; -oxyCODONE 5MG TAB As Ordered ONE
== END ==
LOC: M SLEEP HO 11:08
PROVIDERS: ATTEND Physician Assistant Medical
DX: G47.33 Obstructive sleep apnea (adult) (pediatric) (principal)
CPT/HCPCS: G0399 ×2

== ENCOUNTER → 2024-07-30 | Outpatient (CLI) | payer BC, MEDICARE | LOC: M PAIN 15:15 | PROVIDERS: ATTEND Nurse Practitioner Family | DX: G43.709 Chronic migraine without aura, not intractable, without status migrainosus (principal); J45.909 Unspecified asthma, uncomplicated; F32.A Depression, unspecified; F41.9 Anxiety disorder, unspecified; Z79.899 Other long term (current) drug therapy; E66.01 Morbid (severe) obesity due to excess calories; G90.A Postural orthostatic tachycardia syndrome [POTS]; Z79.890 Hormone replacement therapy; Z91.018 Allergy to other foods ==

== ENCOUNTER → 2024-09-17 | Outpatient (CLI) | payer BC, MEDICARE ==
[~2024-09-17] MED LIST changes: +BOTOX THERAPEUTIC 100 UNIT VIAL IM ONE; +diazePAM 5MG TABLET As Ordered ONE; +oxyCODONE 5MG TAB As Ordered ONE
== END ==
LOC: M PAIN 12:30
PROVIDERS: ATTEND Anesthesiology
DX: G43.709 Chronic migraine without aura, not intractable, without status migrainosus (principal); Z79.899 Other long term (current) drug therapy; Z80.42 Family history of malignant neoplasm of prostate; Z91.018 Allergy to other foods; Z91.048 Other nonmedicinal substance allergy status
CPT/HCPCS: 64615; J0585

== ENCOUNTER → 2024-11-02 | Outpatient (CLI) | payer BC, MEDICARE ==
[~2024-11-02] MED LIST changes: -BOTOX THERAPEUTIC 100 UNIT VIAL IM ONE; -diazePAM 5MG TABLET As Ordered ONE; -oxyCODONE 5MG TAB As Ordered ONE
[2024-11-02 13:08] LABS: BASO # 0.1 10^3/uL (0.0-0.2); BASO % 0.7 % (0.0-1.0); EOS # 0.2 10^3/uL (0.0-0.5); EOS % 2.9 % (0.0-3.0); HEMATOCRIT 38.9 % (36.0-47.0); HEMOGLOBIN 12.4 g/dl (12.0-15.5); LYMPH # 2.7 10^3/uL (1.5-5.0); MEAN CORPUSCULAR HEMOGLOBIN 32.2 pg (27.0-33.0); MEAN CORPUSCULAR HGB CONC 31.9 g/dl (32.0-36.5); MONO # 0.6 10^3/uL (0.0-0.8); MONO % 8.4 % (2.0-8.0); NEUTROPHILS # 3.6 10^3/uL (1.5-8.5); NEUTROPHILS % 50.3 % (36.0-66.0); PLATELET COUNT, AUTOMATED 232 10^3/uL (150-450); RED BLOOD COUNT 3.85 10^6/uL (4.00-5.40); WHITE BLOOD COUNT 7.2 10^3/uL (4.0-10.0)
[2024-11-02 13:14] LABS: IRON (FE) 99 UG/DL (50-170)
[2024-11-02 13:16] LABS: VITAMIN B12 LEVEL 433 PG/ML (211-911)
[2024-11-02 13:17] LABS: FERRITIN 15.5 NG/ML (7.3-270.7); FREE T4 1.17 NG/DL (0.89-1.76); THYROID STIMULATING HORMONE 18.372 uIU/ML (0.55-4.78)
[2024-11-02 13:19] LABS: THYROGLOBULIN ANTIBODY < 15.0 U/ML (<60.0)
[2024-11-04 13:37] LABS: THRYOGLOBULIN ANTIBODIES (ATA) < 1 IU/mL (< or = 1); THYROGLOBULIN QUANTITATIVE 0.5 ng/mL (2.8-40.9)
== END ==
LOC: M PLALAB 10:06
PROVIDERS: ATTEND Physician Assistant Medical
DX: E03.9 Hypothyroidism, unspecified (principal)

== ENCOUNTER → 2024-11-02 | Outpatient (CLI) | payer BC, MEDICARE | LOC: M PAIN 14:15 | PROVIDERS: ATTEND Nurse Practitioner Family | DX: G43.709 Chronic migraine without aura, not intractable, without status migrainosus (principal); J45.909 Unspecified asthma, uncomplicated; Z79.890 Hormone replacement therapy; Z79.899 Other long term (current) drug therapy; Z91.018 Allergy to other foods ==

== ENCOUNTER → 2024-11-04 | Outpatient (CLI) | payer BC, MEDICARE | LOC: M RAD 09:53 | PROVIDERS: ATTEND Student in an Organized Health Care Education/Training Program | DX: C73 Malignant neoplasm of thyroid gland (principal) ==

== ENCOUNTER → 2024-12-11 | Outpatient (CLI) | payer BC, MEDICARE ==
[2024-12-11 13:48] LABS: FREE T4 1.92 NG/DL (0.89-1.76); THYROID STIMULATING HORMONE 0.217 uIU/ML (0.55-4.78)
== END ==
LOC: M PLALAB 09:36
PROVIDERS: ATTEND Student in an Organized Health Care Education/Training Program
DX: C73 Malignant neoplasm of thyroid gland (principal); E89.0 Postprocedural hypothyroidism

== ENCOUNTER → 2025-01-27 | Outpatient (REF) | payer BC, MEDICARE ==
[~2025-01-27] MED LIST changes: +TOPI-14 PO; -TOPI200T7 PO
[2025-01-27 13:51] LABS: APPEARANCE, URINE CLEAR (CLEAR); BACTERIA, URINE AUTO NEGATIVE (NEGATIVE); BILIRUBIN, URINE AUTO NEGATIVE (NEGATIVE); BLOOD, URINE BLOOD NEGATIVE (NEGATIVE); COLOR, URINE AMBER (YELLOW); GLUCOSE, URINE (UA) AUTO NEGATIVE (NEGATIVE); KETONE, URINE AUTO NEGATIVE (NEGATIVE); LEUKOCYTE ESTERASE, URINE AUTO NEGATIVE (NEGATIVE); MUCUS, URINE SMALL (NEGATIVE); NITRITE, URINE AUTO NEGATIVE (NEGATIVE); PROTEIN, URINE AUTO NEGATIVE (NEGATIVE); RBC, URINE AUTO 1 /HPF (0-3); SPECIFIC GRAVITY URINE AUTO 1.012 (1.002-1.035); SQUAMOUS EPITHELIAL CELL UR AU 0 /HPF (0-6); UROBILINOGEN, URINE AUTO 0.2 mg/dL (0.0-2.0); WBC, URINE AUTO 0 /HPF (0-3)
== END ==
LOC: M SFHCPLAZ 12:45
PROVIDERS: ATTEND Nurse Practitioner Family
DX: R50.9 Fever, unspecified (principal)

== ENCOUNTER → 2025-03-10 | Outpatient (CLI) | payer BC, MEDICARE ==
[~2025-03-10] MED LIST changes: +CARD60TA3 PO; +SPIR-10 PO; +TIZA2CAP PO
[2025-03-10 15:48] LABS: BASO # 0.0 10^3/uL (0.0-0.2); BASO % 0.5 % (0.0-1.0); EOS # 0.1 10^3/uL (0.0-0.5); EOS % 1.7 % (0.0-3.0); LYMPH # 2.3 10^3/uL (1.5-5.0); LYMPH % 37.6 % (24.0-44.0); MONO # 0.6 10^3/uL (0.0-0.8); MONO % 9.1 % (2.0-8.0); NEUTROPHILS # 3.1 10^3/uL (1.5-8.5); NEUTROPHILS % 50.8 % (36.0-66.0); PLATELET COUNT, AUTOMATED 248 10^3/uL (150-450)
[2025-03-10 16:20] LABS: IRON (FE) 112.0 UG/DL (50-170)
== END ==
LOC: M PLALAB 11:27
PROVIDERS: ATTEND Physician Assistant Medical
DX: E61.1 Iron deficiency (principal)

== ENCOUNTER → 2025-06-09 | Outpatient (REF) | payer BC, MEDICARE ==
[2025-06-09 15:40] LABS: IRON (FE) 114.0 UG/DL (50-170)
[2025-06-09 15:43] LABS: FREE T4 1.4 NG/DL (0.89-1.76)
== END ==
LOC: M SFHCPLAZ 11:45
PROVIDERS: ATTEND Physician Assistant Medical
DX: E61.1 Iron deficiency (principal); E03.9 Hypothyroidism, unspecified